=== PATIENT | female | born 1935 | race Caucasian/White ===

== ENCOUNTER 2016-10-26 00:18 | Inpatient (IN) | payer MEDICARE, OTHER ==
[~2016-10-26] VITALS: Ht 152.4 cm; Wt 90.3 kg
[~2016-10-26 00:18] MED LIST: ACHD5005 PO; ARICEPT; ASP325TEC PO; ASP81CT; ASP81CT PO; ASP81TEC PO; BACL10TA PO; BACLOFEN; BUPR150T PO; BUPR150T6; CA C1TAB26 PO; CELEBREX; CEREFOLIN; CHOL10002; CLCX100C PO; CLCX200C; CLCX200C PO; COLACE; DCS100C PO; DIOVAN; DNPZ10T; DOCU-165 PO; ECASA; GABAPENTIN; GBPN300C PO; HYDROCODONE 5/325; IBUP-15 PO; IRBE1TAB15 PO; LD5PT TOP; MEMA10TA; MEMA10TA PO; MIRALAX; MULT1CAP27 PO; MULT1TAB63; MULTIVITAMIN; NAMENDA; OXYC10TA63 PO; OXYCODONE PO; PAXIL; POLY17PO23 PO; POT; POTA99TA4 PO; PRX20T; PRX20T PO; VALS320T8 PO; VIT1TABL5 PO; VLS80C
[2016-10-26] MEDS ORDERED: NS IV 500 ML 500 ML IV ONE (00:23)
[2016-10-26 00:31] LABS: BILIRUBIN,URINE NEGATIVE (NEGATIVE); KETONES,URINE 1+ (NEGATIVE); LEUKOCYTE ESTERASE ,URINE 1+ (NEGATIVE); NITRITE,URINE NEGATIVE (NEGATIVE); PH,URINE 5 (5-9); PROTEIN,URINE 2+ (NEGATIVE); UROBILINOGEN,URINE 4 MG/DL (NORMAL)
[2016-10-26 00:33] LABS: BASOPHILS % (AUTO) 0 % (0-10); EOSINOPHILS # (AUTO) 0.2 10^3/uL (0.0-0.3); EOSINOPHILS % (AUTO) 3 % (0-10); LYMPHOCYTES # (AUTO) 2.3 X 10^3 (1.0-4.0); LYMPHOCYTES % (AUTO) 33 % (12-44); MEAN CORPUSCULAR HEMOGLOBIN 33 PG (25-34); MEAN CORPUSCULAR HGB CONC 33 G/DL (32-36); MEAN CORPUSCULAR VOLUME 101 FL (80-99); MEAN PLATELET VOLUME 9.3 FL (7.4-10.4); MONOCYTES # (AUTO) 0.7 X 10^3 (0.0-1.0); MONOCYTES % (AUTO) 10 % (0-12); NEUTROPHILS # (AUTO) 3.8 X 10^3 (1.8-7.8); NEUTROPHILS % (AUTO) 55 % (42-75); PLATELET COUNT 279 10^3/uL (130-400); RED BLOOD COUNT 4.01 10^6/uL (4.35-5.85); RED CELL DISTRIBUTION WIDTH 13.4 % (10.0-14.5)
[2016-10-26 00:39] LABS: HYALINE CASTS, URINE 25-50 /LPF; SQUAMOUS EPITHELIAL CELL,UR RARE /HPF; WBC,URINE 0-2 /HPF
--- NOTE | 2016-10-26 00:48 | ED Fall/Injury ---
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 found her laying on the ground next to her bed complaining of left knee pain. Patient does not remember fall and is not sure if she hit her head. She states her left knee and hip hurt. reports that she's had bilateral knee replacements and believes that she's had a left hip replacement. She does smell strong urine odor. Patient's reports that she is historically incontinent. Location Injury Occurred: HOME Occurred: just prior to arrival (30 minutes ago) Severity: moderate Injuries/Pain Location: lower extremity Context: slipped Loss of Consciousness: unsure Associated Symptoms (Fall): No Abdominal Pain, No Chest Pain, Confusion, No Headache, Muscle Spasms, No Nausea/Vomiting, No Shortness of Air Allergies and Home Medications Allergies Coded Allergies: No Known Drug Allergies (Verified , 06/17/08) Home Medications Aspirin 81 Mg Tabec, 81 MG PO DAILY, (Reported) Bupropion Hcl 150 Mg Tab.sr.24h, 150 MG PO DAILY, (Reported) Ca Cmb No.1/Vit D3/B-6/Fa/B12 1 Each Tablet, 1 EACH PO DAILY, (Reported) Celecoxib 200 Mg Capsule, 1 EACH PO DAILY, (Reported) Docusate Sodium 100 Mg Capsule, 100 MG PO DAILY, (Reported) Irbesartan/Hydrochlorothiazide 1 Tab Tablet, 2 TAB PO DAILY, (Reported) Memantine Hcl 10 Mg Tablet, 1 EACH PO BID, (Reported) Multivitamins 1 Each Capsule, 1 EACH PO DAILY, (Reported) Oxycodone Hcl 10 Mg Tab.sr.12h, 10 MG PO Q12H, (Reported) Paroxetine Hcl 20 Mg Tablet, 2 TAB PO HS, (Reported) Potassium Gluconate 99 Mg Tablet, 99 MG PO DAILY, (Reported) Vit B12/Lm-Folate Ca/Vit B6/B2 1 Tab Tablet, 1 TAB PO DAILY, (Reported) [oxycodone 7.5/325mg] , 1-2 TAB PO Q4H PRN, (Reported) as needed for pain Constitutional: see HPI, No chills, No fever Eyes: No Symptoms Reported Ears, Nose, Mouth, Throat: no symptoms reported Respiratory: no symptoms reported, No short of breath, No wheezing Cardiovascular: No chest pain, No edema Gastrointestinal: no symptoms reported, No nausea, No vomiting Genitourinary: no symptoms reported Musculoskeletal: see HPI, muscle pain, muscle cramps, muscle twitching Skin: no symptoms reported All Other Systems Reviewed Negative Unless Noted: Yes Past Prvsvgn-Pqexug-Jnrwin Hx Patient Social History Alcohol Use: Denies Use Recreational Drug Use: No Smoking Status: Never a Smoker Recent Foreign Travel: No Contact w/Someone Who Travel: No Recent Infectious Disease Expo: No Recent Hopitalizations: Yes Surgeries HX Surgeries: Yes (R ROTATOR CUFF, KNEES,ANKLES) Surgeries: Appendectomy, Eye Surgery, Orthopedic, Tonsillectomy Respiratory Hx Respiratory Disorders: No Cardiovascular Hx Cardiac Disorders: Yes Cardiac Disorders: Hypertension Neurological Hx Neurological Disorders: Yes Neurological Disorders: TIA Reproductive System Hx Reproductive Disorders: No Genitourinary Hx Genitourinary Disorders: Yes Gastrointestinal Hx Gastrointestinal Disorders: Yes Musculoskeletal Hx Musculoskeletal Disorders: Yes Musculoskeletal Disorders: Arthritis Endocrine Hx Endocrine Disorders: No HEENT HX ENT Disorders: Yes HEENT Disorders: Cataract Psychosocial Hx Psychiatric Problems: Yes Blood Transfusions Hx Blood Disorders: No Reviewed Nursing Assessment Reviewed/Agree w Nursing PMH: Yes Family Medical History Significant Family History: No Pertinent Family Hx Physical Exam Vital Signs Vital Sign - Last 12Hours 10/26/16 00:20 Temp 98.1 Pulse 78 Resp 16 B/P (MAP) 133/91 Pulse Ox 94 O2 Delivery Room Air Capillary Refill : Less Than 3 Seconds General Appearance: WD/WN, moderate distress (left leg pain) HEENT: PERRL/EOMI, pharynx normal Neck: full range of motion, supple Cardiovascular: regular rate, rhythm, no murmur Respiratory: lungs clear, normal breath sounds Gastrointestinal: non tender, soft Back: normal inspection, no CVA tenderness, no vertebral tenderness Extremities: non-tender, normal inspection Neurologic/Psychiatric: alert, oriented x 3 Skin: normal color, warm/dry Sunni Coma Score Best Eye Response: (4) Open Spontaneously Best Verbal Response: (5) Oriented Best Motor Response: (6) Obeys Commands Progress/Results/Core Measures Results/Orders Lab Results Laboratory Tests Test 10/26/16 00:10/26/16 00:27 Range/Units Urine Color YELLOW Urine Clarity CLEAR Urine pH 5 5-9 Urine Specific [place] 1.020 1.016-1.022 Urine Protein 2+ H NEGATIVE Urine Glucose (UA) NEGATIVE NEGATIVE Urine Ketones 1+ H NEGATIVE Urine Nitrite NEGATIVE NEGATIVE Urine Bilirubin NEGATIVE NEGATIVE Urine Urobilinogen 4 H NORMAL MG/DL Urine Leukocyte Esterase 1+ H NEGATIVE Urine RBC (Auto) NEGATIVE NEGATIVE Urine RBC NONE /HPF Urine WBC 0-2 /HPF Urine Squamous Epithelial Cells RARE /HPF Urine Crystals NONE /LPF Urine Bacteria TRACE /HPF Urine Casts PRESENT /LPF Urine Hyaline Casts 25-50 H /LPF Urine Mucus MODERATE H /LPF Urine Culture Indicated NO White Blood Count 7.0 4.3-11.0 10^3/uL Red Blood Count 4.01 L 4.35-5.85 10^6/uL Hemoglobin 13.2 11.5-16.0 G/DL Hematocrit 40 35-52 % Mean Corpuscular Volume 101 H 80-99 FL Mean Corpuscular Hemoglobin 33 25-34 PG Mean Corpuscular Hemoglobin Concent 33 32-36 G/DL Red Cell Distribution Width 13.4 10.0-14.5 % Platelet Count 279 130-400 10^3/uL Mean Platelet Volume 9.3 7.4-10.4 FL Neutrophils (%) (Auto) 55 42-75 % Lymphocytes (%) (Auto) 33 12-44 % Monocytes (%) (Auto) 10 0-12 % Eosinophils (%) (Auto) 3 0-10 % Basophils (%) (Auto) 0 0-10 % Neutrophils # (Auto) 3.8 1.8-7.8 X 10^3 Lymphocytes # (Auto) 2.3 1.0-4.0 X 10^3 Monocytes # (Auto) 0.7 0.0-1.0 X 10^3 Eosinophils # (Auto) 0.2 0.0-0.3 10^3/uL Basophils # (Auto) 0.0 0.0-0.1 10^3/uL Sodium Level 140 135-145 MMOL/L Potassium Level 4.4 3.6-5.0 MMOL/L Chloride Level 104 98-107 MMOL/L Carbon Dioxide Level 25 21-32 MMOL/L Anion Gap 11 5-14 MMOL/L Blood Urea Nitrogen 26 H 7-18 MG/DL Creatinine 1.07 0.60-1.30 MG/DL Estimat Glomerular Filtration Rate 49 BUN/Creatinine Ratio 24 Glucose Level 128 H 70-105 MG/DL Calcium Level 9.3 8.5-10.1 MG/DL Total Bilirubin 0.3 0.1-1.0 MG/DL Aspartate Amino Transf (AST/SGOT) 12 5-34 U/L Alanine Aminotransferase (ALT/SGPT) 11 0-55 U/L Alkaline Phosphatase 68 40-136 U/L Total Protein 6.3 L 6.4-8.2 GM/DL Albumin 3.7 3.2-4.5 GM/DL My Orders Orders - JAEL ANDERSON MD Cbc With Automated Diff (10/26/16 00:23) Comprehensive Metabolic Panel (10/26/16:23) Ua Culture If Indicated (10/26/16:23) Knee, Left, 3 Views (10/26/16 00:23) Pelvis (10/26/16:23) Ct Head Wo (10/26/16:23) Ns Iv 500 Ml (Sodium Chloride 0.9%) (10/26/16 00:23) Chest 1 View, Ap/Pa Only (10/26/16 01:10) Femur, Left, 2 Views (10/26/16 01:10) Hydromorphone Injection (Dilaudid Inject (10/26/16 01:13) Hydromorphone Injection (Dilaudid Inject (10/26/16 01:08) Medications Given in ED Current Medications Medications Dose Ordered Sig/Cristal Route Start Time Stop Time Status Last Admin Dose Admin Sodium Chloride 500 ml @ 0 mls/hr Q0M ONCE IV 10/26/16 00:23 10/26/16 00:25 DC 10/26/16 00:33 500 MLS/HR Vital Signs/I&O Vital Sign - Last 12Hours 10/26/16 00:20 Temp 98.1 Pulse 78 Resp 16 B/P (MAP) 133/91 Pulse Ox 94 O2 Delivery Room Air Blood Pressure Mean: 105 Progress Note : Progress Note Seen and evaluated on arrival by EMS. IV established by EMS. CT head, x-ray left knee and femur as well as pelvis ordered. Labs and UA ordered. Monitor patient. Monitor significant pain reported. X-ray of the femur shows distal left femur fracture just above knee hardware with displacement anterior and medial. Case discussed with Dr. Drummond at 0114. He accepts patient for admission. Case discussed with Dr. Toribio, on-call for Dr. Henson at 0126. She accepts patient in consult. Patient did receive Dilaudid 0.5 mg IV and was placed in a knee immobilizer per Dr. Drummond recommendation. This did improve her pain. Admit, inpatient status. Family agrees with plan. Diagnostic Imaging Diagonstic Imaging: CT Plain Films/CT/US/NM/MRI: head Comments No acute intracranial process. Diagonstic Imaging: Xray Plain Films/CT/US/NM/MRI: knee Comments Distal femur fracture with femur displaced medial and anterior. Reviewed: Reviewed by Me Diagonstic Imaging: Xray Plain Films/CT/US/NM/MRI: femur (left femur) Comments Distal femur fracture with femur displaced medial and anterior. Reviewed: Reviewed by Me Diagonstic Imaging: Xray Plain Films/CT/US/NM/MRI: pelvis Comments No acute findings. Reviewed: Reviewed by Me Departure Communication Time/Spoke to Admitting Phy: 01:14 Time/Spoke to Consulting Physi: 01:26 Impression Impression: Primary Impression: Femur fracture, left Qualified Codes: S72.452A - Displaced supracondylar fracture without intracondylar extension of lower end of left femur, initial encounter for closed fracture Disposition: ADMITTED INPATIENT Condition: Stable Decision to Admit Reason: Admit from ER (General) Decision to Admit/Date: Oct 26, 2016 Time/Decision to Admit Time: 01:14 Departure-Patient Inst. Referrals: SANDRO HENSON DO (PCP/Family) Primary Care Physician JAEL ANDERSON MD Oct 26, 2016 00:48
[2016-10-26 00:56] LABS: ALBUMIN 3.7 GM/DL (3.2-4.5); BILIRUBIN,TOTAL 0.3 MG/DL (0.1-1.0); CALCIUM 9.3 MG/DL (8.5-10.1); CREATININE SERUM 1.07 MG/DL (0.60-1.30); POTASSIUM 4.4 MMOL/L (3.6-5.0); TOTAL PROTEIN 6.3 GM/DL (6.4-8.2)
[2016-10-26] MEDS ORDERED: HYDROmorphone (DILAUDID) 2 MG/ML VIAL ONE (01:08)
[2016-10-26] MEDS ORDERED: HYDROmorphone (DILAUDID) 2 MG/ML VIAL IVP STA (01:13)
[2016-10-26 02:20] VITALS: BP 115/57
[2016-10-26] MEDS ORDERED: NS IV 1000 ML 1,000 ML ONE (02:42)
[2016-10-26 04:00] VITALS: BP 125/74
[2016-10-26] MEDS: HALOPERIDOL 5 MG/ML (HALDOL) AMP IV PRN (04:19)
[2016-10-26] MEDS ORDERED: LORazepam INJ 2 MG/ML (ATIVAN) VIAL ONE (04:44)
[2016-10-26] MEDS ORDERED: ONDANSETRON 4 MG/2 ML (SDV) Z0FRAN IV PRN ×2 (05:00→13:15)
[2016-10-26] MEDS ORDERED: CATHETER FLUSH 10 ML SYR IV PRN (05:00)
[2016-10-26] MEDS ORDERED: LORazepam INJ 2 MG/ML (ATIVAN) VIAL IVP ONE (05:00)
[2016-10-26] MEDS: NS IV 1000 ML 1,000 ML IV SCH ×2 (05:12→15:12)
[2016-10-26] MEDS: HYDROmorphone (DILAUDID) 2 MG/ML VIAL IV PRN ×4 (05:13→15:43)
--- NOTE | 2016-10-26 06:54 | Diagnostic Imaging Report ---
CHEST 1 VIEW, AP/PA ONLY Indication: Fall. Trauma. Comparison: None available. Findings: No focal airspace disease in the visualized lungs. Please note that the posterior lower lobes are poorly evaluated by portable radiography. No pleural effusion or pneumothorax. Normal cardiomediastinal silhouette. Severe osteoarthritis of both glenohumeral joints. Impression: No acute cardiopulmonary process by portable radiography. Dictated by: Dictated on workstation # [id number]
--- NOTE | 2016-10-26 06:54 | Diagnostic Imaging Report ---
INDICATION: Patient fell at home injuring left leg. AP and lateral views of the left femur show postop changes from left hip and left knee arthroplasty. There are old healed fractures of the left superior and inferior ischiopubic rami and the greater trochanter on the left. No acute abnormality seen in the hip. There are postop changes from arthroplasty of the knee. There is a transcondylar fracture of the distal femur just above the prosthesis. The fracture is comminuted with the distal component displaced laterally and posteriorly. IMPRESSION: Comminuted displaced fracture of the distal left femur just above the femoral component of the prosthesis. Dictated by: Dictated on workstation # [id number]
--- NOTE | 2016-10-26 06:55 | Diagnostic Imaging Report ---
INDICATION: Pain after fall. COMPARISON: Left hip radiographs of 10/03/2008. FINDINGS: Osteoporosis limits evaluation for nondisplaced fractures in the pelvis. Allowing for this, there are old healed fractures of the left superior and inferior pubic rami. Left total hip arthroplasty without acute periprosthetic fracture on single frontal view. No discrete fracture of the proximal right femur. No diastasis of the symphysis pubis or SI joints. No discrete sacral ala fracture, though evaluation is limited. IMPRESSION: Allowing for limitation of osteopenia and overlying bowel gas, no discrete acute fracture. Dictated by: Dictated on workstation # [id number]
--- NOTE | 2016-10-26 06:56 | Diagnostic Imaging Report ---
INDICATION: Left knee injury 3 views of the left knee show postop changes from joint arthroplasty. There is a comminuted fracture of the distal femur just above the femoral component of the prosthesis. The distal aspect of the femur is displaced posteriorly and laterally. There may also be a non-displaced transverse fracture of the inferior aspect of the patella. IMPRESSION: Displaced/comminuted fracture distal femur just above the prosthesis. Questionable patellar fracture. Dictated by: Dictated on workstation # [id number]
--- NOTE | 2016-10-26 06:58 | Diagnostic Imaging Report ---
PROCEDURE: CT head without contrast. TECHNIQUE: Multiple contiguous axial images were obtained through the brain without the use of intravenous contrast. INDICATION: Head injury from a fall The ventricles are normal in size, shape and position. There are no masses or hemorrhages. There are no extra-axial fluid collections. There is generalized atrophy. There is decreased density in the periventricular white matter. 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 There are no acute intracranial abnormalities seen. I agree with preliminary interpretation. Dictated by: Dictated on workstation # [id number]
[2016-10-26] MEDS: CATHETER FLUSH 10 ML SYR IV SCH ×3 (07:43→21:04)
[2016-10-26 08:15] VITALS: BP 107/61
[2016-10-26] MEDS ORDERED: morphine INJ 10 MG/ML 1ML (SYR OR VIAL) ONE (10:18)
[2016-10-26] MEDS ORDERED: MEPERIDINE (DEMEROL) INJ 50 MG/ML ONE (10:19)
--- NOTE | 2016-10-26 10:38 | Consultation ---
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 SHE PRESENTED TO THE EMERGENCY DEPARTMENT AFTER FALLING AT HOME. THE FALL WAS NOT WITNESSED BY HER SPOUSE. SHE HAD GOTTEN OUT OF BED, FELL AND FELT IMMEDIATE PAIN IN HER LEFT KNEE. HER BROUGHT HER OUT TO THE EMERGENCY DEPARTMENT FOR FURTHER EVALUATION. SHE WAS FOUND TO HAVE A COMMINUTED DISPLACED FRACTURE OF THE DISTAL LEFT FEMUR IMMEDIATELY ABOVE THE FEMORAL COMPONENT OF HER LEFT KNEE REPLACEMENT HARDWARE. Allergies and Home Medications Allergies Coded Allergies: No Known Drug Allergies (Verified , 06/17/08) Home Medications Aspirin 81 Mg Tabec, 81 MG PO DAILY, (Reported) Bupropion Hcl 150 Mg Tab.sr.24h, 150 MG PO DAILY, (Reported) Ca Cmb No.1/Vit D3/B-6/Fa/B12 1 Each Tablet, 1 EACH PO DAILY, (Reported) Celecoxib 200 Mg Capsule, 1 EACH PO DAILY, (Reported) Docusate Sodium 100 Mg Capsule, 100 MG PO DAILY, (Reported) Irbesartan/Hydrochlorothiazide 1 Tab Tablet, 2 TAB PO DAILY, (Reported) Memantine Hcl 10 Mg Tablet, 1 EACH PO BID, (Reported) Multivitamins 1 Each Capsule, 1 EACH PO DAILY, (Reported) Oxycodone Hcl 10 Mg Tab.sr.12h, 10 MG PO Q12H, (Reported) Paroxetine Hcl 20 Mg Tablet, 2 TAB PO HS, (Reported) Potassium Gluconate 99 Mg Tablet, 99 MG PO DAILY, (Reported) Vit B12/Lm-Folate Ca/Vit B6/B2 1 Tab Tablet, 1 TAB PO DAILY, (Reported) [oxycodone 7.5/325mg] , 1-2 TAB PO Q4H PRN, (Reported) as needed for pain Past Zhgysbz-Qbbrei-Jgeroe Hx Patient Social History Alcohol Use: Denies Use Recreational Drug Use: No Smoking Status: Never a Smoker 2nd Hand Smoke Exposure: No Recent Foreign Travel: No Contact w/Someone Who Travel: No Recent Infectious Disease Expo: No Recent Hopitalizations: Yes Physical Abuse Screen: No Sexual Abuse: No Seasonal Allergies Seasonal Allergies: No Surgeries HX Surgeries: Yes (R ROTATOR CUFF, KNEES,ANKLES) Surgeries: Appendectomy, Eye Surgery, Orthopedic (LEFT KNEE REPLACEMENT), Tonsillectomy Respiratory Hx Respiratory Disorders: No Cardiovascular Hx Cardiac Disorders: Yes Cardiac Disorders: Hypertension Neurological Hx Neurological Disorders: Yes Neurological Disorders: TIA Reproductive System : No Hx Reproductive Disorders: No Sexually Transmitted Disease: No HIV/AIDS: No Female Reproductive Disorders: Denies Genitourinary Hx Genitourinary Disorders: Yes Gastrointestinal Hx Gastrointestinal Disorders: Yes Musculoskeletal Hx Musculoskeletal Disorders: Yes Musculoskeletal Disorders: Arthritis Endocrine Hx Endocrine Disorders: No HEENT HX ENT Disorders: Yes HEENT Disorders: Cataract Loss of Vision: Denies Hearing Impairment: Denies Psychosocial Hx Psychiatric Problems: Yes Blood Transfusions Hx Blood Disorders: No Reviewed Nursing Assessment Reviewed/Agree w Nursing PMH: Yes Family Medical History Significant Family History: Heart Disease Review of Systems-General Constitutional: No chills, No fever, malaise, weakness EENTM: No hoarseness, No mouth swelling, No throat swelling Respiratory: No cough, No dyspnea on exertion, No short of breath Cardiovascular: No chest pain, No palpitations Gastrointestinal: No abdominal pain, No nausea, No vomiting Genitourinary: no symptoms reported : No Musculoskeletal: joint pain (LEFT KNEE), muscle weakness Skin: No lesions, No rash Psychiatric/Neurological: Denies Anxiety, Denies Depressed, Headache, Other ( DEMENTIA) All Other Systems Reviewed Negative Unless Noted: Yes Physical Exam-General Problems Physical Exam Vital Signs Vital Sign - Last 12Hours 10/26/16 00:20 Temp 98.1 Pulse 78 Resp 16 B/P (MAP) 133/91 Pulse Ox 94 O2 Delivery Room Air Capillary Refill : Less Than 3 SecondsLess Than 3 Seconds General Appearance: WD/WN, mild distress (DUE TO PAIN) Eyes: Bilateral Eye Normal Inspection Neck: non-tender, supple, normal inspection Respiratory: chest non-tender, lungs clear, normal breath sounds, no respiratory distress, no accessory muscle use Cardiovascular: regular rate, rhythm, systolic murmur Gastrointestinal: normal bowel sounds, non tender, soft, no organomegaly, no pulsatile mass Rectal: deferred Extremities: swelling (LEFT LEFT AT KNEE/MID THIGH - SURGICAL DRESSING IN PLACE ) 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 CHRONIC INCONTINENCE - SUPPORTIVE CARE - URINALYSIS NEGATIVE FOR INFECTION HX OF STROKE - WILL CONTINUE WITH ASPIRIN THERAPY. HYPERTENSION - RESTART IRBESARTAN (IF NOT AVAILABLE, WILL HAVE SPOUSE BRING FROM HOME OR SUBSTITUTE HOSPITAL FORMULARY MEDICATION) DEMENTIA - RESTART NAMENDA CHRONIC PAIN SYNDROME - ON OXYCODONE AT HOME, DUE TO NEW ACUTE PAIN - WILL USE IV PAIN MEDICATION FOR CONTROL OF HER CURRENT PAIN, RESTART HOME MEDICATION TOMORROW OR FRIDAY. DEPRESSION - RESTART HOME MEDICATIONS. OSTEOARTHRITIS - ON CELEBREX - IF NOT AVAILABLE IN HOSPITAL, WILL HAVE HER SPOUSE BRING HOME MEDICATION. Clinical Quality Measures DVT/VTE Risk/Contraindication: Risk Factor Score Per Nursin RFS Level Per Nursing on Admit: 4+=Very High MAYITO LLAMAS MD Oct 26, 2016 10:38
[2016-10-26] MEDS ORDERED: proPOfol 200 MG/20 ML (DIPRIVAN) VIAL IV ONE (10:55)
[2016-10-26] MEDS ORDERED: fentaNYL INJECTION 100 MCG/2 ML AMP ONE ×2 (10:55→12:39)
--- NOTE | 2016-10-26 11:36 | History & Physicial ---
History of Present Illness History of Present Illness Reason for visit/HPI Chief complaint: Left thigh pain This 81 year old female fell at home and fractured the left femur just above a knee prosthesis. She had a right TKA at least 15 years ago. She has poor balance and falls all the time. She has a rolling walker but does not always think she needs it. She denies any LOC or any other injury. Date of Admission Oct 26, 2016 at 01:30 Date Seen by Provider: Oct 26, 2016 Time Seen by Provider: 11:28 I consulted on this patient on 10/26/16 11:28 Attending Physician Virginia Drummond MD Admitting Physician Suzy Henson DO Consult Allergies and Home Medications Allergies Coded Allergies: No Known Drug Allergies (Verified , 06/17/08) Home Medications Aspirin 81 Mg Tabec, 81 MG PO DAILY, (Reported) Bupropion Hcl 150 Mg Tab.sr.24h, 150 MG PO DAILY, (Reported) Ca Cmb No.1/Vit D3/B-6/Fa/B12 1 Each Tablet, 1 EACH PO DAILY, (Reported) Celecoxib 200 Mg Capsule, 1 EACH PO DAILY, (Reported) Docusate Sodium 100 Mg Capsule, 100 MG PO DAILY, (Reported) Irbesartan/Hydrochlorothiazide 1 Tab Tablet, 2 TAB PO DAILY, (Reported) Memantine Hcl 10 Mg Tablet, 1 EACH PO BID, (Reported) Multivitamins 1 Each Capsule, 1 EACH PO DAILY, (Reported) Oxycodone Hcl 10 Mg Tab.sr.12h, 10 MG PO Q12H, (Reported) Paroxetine Hcl 20 Mg Tablet, 2 TAB PO HS, (Reported) Potassium Gluconate 99 Mg Tablet, 99 MG PO DAILY, (Reported) Vit B12/Lm-Folate Ca/Vit B6/B2 1 Tab Tablet, 1 TAB PO DAILY, (Reported) [oxycodone 7.5/325mg] , 1-2 TAB PO Q4H PRN, (Reported) as needed for pain Past Ydjqmtx-Muccoe-Fdhfef Hx Patient Social History Marrital Status: Employed/Student: retired Alcohol Use: Denies Use Recreational Drug Use: No Smoking Status: Never a Smoker 2nd Hand Smoke Exposure: No Physical Abuse Screen: No Sexual Abuse: No Recent Foreign Travel: No Contact w/other who traveled: No Recent Hopitalizations: Yes Recent Infectious Disease Expo: No Seasonal Allergies Seasonal Allergies: No Surgeries HX Surgeries: Yes (R ROTATOR CUFF, KNEES,ANKLES) Surgeries: Appendectomy, Eye Surgery, Orthopedic (LEFT KNEE REPLACEMENT), Tonsillectomy Respiratory Hx Respiratory Disorders: No Cardiovascular Hx Cardiovascular Disorders: Yes Cardiac Disorders: Hypertension Neurological Hx Neurological Disorders: Yes Neurological Disorders: TIA Reproductive System : No Hx Reproductive Disorders: No Sexually Transmitted Disease: No HIV/AIDS: No Female Reproductive Disorders: Denies Genitourinary Hx Genitourinary Disorders: Yes Gastrointestinal Hx Gastrointestinal Disorders: Yes Musculoskeletal Hx Musculoskeletal Disorders: Yes Musculoskeletal Disorders: Arthritis Endocrine Hx Endocrine Disorders: No HEENT HX ENT Disorders: Yes HEENT Disorders: Cataract Loss of Vision: Denies Hearing Impairment: Denies Psychosocial Hx Psychiatric Problems: Yes Blood Transfusions Hx Blood Disorders: No Reviewed Nursing Assessment Reviewed/Agree w Nursing PMH: Yes Family Medical History Significant Family History: Heart Disease Constitutional: no symptoms reported EENTM: no symptoms reported Respiratory: no symptoms reported Cardiovascular: no symptoms reported Gastrointestinal: no symptoms reported Genitourinary: no symptoms reported : No Musculoskeletal: other (See HPI) Psychiatric/Neurological: No Symptoms Reported, Weakness, Other (Chronic falls and balance issues) Physical Exam Vital Signs Vital Sign - Last 12Hours 10/26/16 00:20 Temp 98.1 Pulse 78 Resp 16 B/P (MAP) 133/91 Pulse Ox 94 O2 Delivery Room Air Capillary Refill : Less Than 3 SecondsLess Than 3 Seconds General Appearance: No Apparent Distress, Obese HEENT: PERRL/EOMI Neck: Full Range of Motion Respiratory: Chest Non Tender Cardiovascular: Regular Rate, Rhythm Gastrointestinal: Normal Bowel Sounds Extremity: Normal Capillary Refill, No Calf Tenderness, No Pedal Edema, Pelvis Stable, Other (Left knee swollen and tender. No bruising. Well healed incision. ) Neurologic/Psychiatric: No Motor/Sensory Deficits, Depressed Affect Skin: Normal Color, Warm/Dry Assessment/Plan Assessment and Plan Left supracondylar periprosthetic femoral fracture-- will go to the operating room for ORIF of the femur. I discussed rehab and [facility] with her and they are agreeable to that. I am sure she will need it with her balance issues and falls she has had prior to the fracture. Problems: Admission Diagnosis Left supracondylar femur fracture Left total knee replacement Clinical Quality Measures DVT/VTE Risk/Contraindication: Risk Factor Score Per Nursin RFS Level Per Nursing on Admit: 4+=Very High VIRGINIA DRUMMOND MD Oct 26, 2016 11:36
[2016-10-26] MEDS: LACTATED RINGERS 1,000 ML IV PRN ×2 (11:41→12:45)
[2016-10-26 11:52] LABS: PROTHROMBIN TIME PATIENT 12.4 SEC (12.2-14.7)
[2016-10-26] MEDS ORDERED: ceFAZolin 1,000 MG (ANCEF) VIAL ONE (11:59)
[2016-10-26] MEDS ORDERED: LACTATED RINGERS 2,000 ML IV ONE (12:52)
[2016-10-26] MEDS ORDERED: SEVOFLURANE (ULTANE) 15 ML INHAL SOLN ONE (12:52)
[2016-10-26] MEDS ORDERED: ONDANSETRON 4 MG/2 ML (SDV) Z0FRAN ONE (12:52)
[2016-10-26] MEDS ORDERED: ROPIVACAINE 5MG/ML 30ML VIAL ONE (12:52)
--- NOTE | 2016-10-26 13:10 | Progress Note-Post Operative ---
Post-Operative Progess Note Surgeon (s)/Data Operations Leader (s) Surgeon VIRGINIA AVINA MD Data Operations Leader: LATOYA OLMEDO PA-C Pre-Operative Diagnosis LEFT COMMINUTED SUPRACONDYLAR FEMORAL FRACTURE Post-Operative Diagnosis SAME Procedure & Operative Findings Date of Procedure 10/26/16 Procedure Performed/Findings OPEN REDUCTION INTERNAL FIXATION OF LEFT SUPRACONDYLAR FEMUR FRACTURE Anesthesia Type GENERAL WITH ULTRASOUND GUIDED FEMORAL NERVE BLOCK PLACED FOR POSTOPERATIVE PAIN CONTROL Estimated Blood Loss Estimated blood loss (mL): 200 ML Specimens/Packing Specimens Removed NONE Packing: NONE VIRGINIA AVINA MD Oct 26, 2016 13:10
[2016-10-26] MEDS ORDERED: APAP 300 MG/CODEINE 30 MG (TYLENOL #3) TAB PO PRN (13:15)
[2016-10-26] MEDS ORDERED: HYDROcodone/APAP 10 MG/325 MG (LORTAB) TAB PO PRN (13:15)
[2016-10-26] MEDS ORDERED: ACETAMINOPHEN 325 MG TABLET/CAPLET (TYLENOL) PO PRN (13:15)
--- NOTE | 2016-10-26 13:39 | Diagnostic Imaging Report ---
INDICATION: Knee pain. Intraoperative fluoroscopy. COMPARISON: Knee radiographs of earlier same day. FINDINGS AND IMPRESSION: Multiple fluoroscopic images were obtained during ORIF of comminuted distal femoral fracture. These demonstrate placement of plate and screw fixation of comminuted distal femoral metadiaphyseal fracture. A total of 75 seconds or fluoroscopy was utilized for this procedure performed by Dr. Drummond. Please see operative report for complete details. Dictated by: Dictated on workstation # [id number]
--- NOTE | 2016-10-26 13:43 | Anesthesia-Peripheral Nerve Bl ---
Procedure Start/Stop Time Date of Procedure: Oct 26, 2016 Start Time: 13:15 Stop Time: 13:25 Peripheral Nerve Block Peripheral Nerve Blockade Risk/Benefits/Alternatives discussed, including IV injection leading to complications or seizures, nerve irritation or damage, pneumothorax, total spinal anesthesia, injection, and/or bleeding. Approach: LT FNB Side Confirmed: LEFT Indication: Req Pain Mgmt by Surgeon Specifically requested for management of pain by: Patient Condition Vital Signs Vital Signs Date Time Temp Pulse Resp B/P (MAP) Pulse Ox O2 Delivery O2 Flow Rate FiO2 10/26/16 10:56 Nasal Cannula 2.00 10/26/16 08:15 96.6 87 16 107/61 92 Patient Condition: General PNB performed under: General Anesthesia Procedure Prepartation: Chlorhexidine Position: Supine [place]: Short-bevel Needle (s) Size: 22g 2" Technique: Ultrasound Injectate: ropivacaine Concentration %: 0.5 Volume (ml): 30 Epinephrine used: No Narrative Injection was made incrementally with constant monitoring. Blood Aspirated: No Pain on injection noted: No Normal Resistance on injection: Yes Events Patient Conditon Post Peripheral Nerve Block Post Peripheral Nerve Block Vital Signs: Blood Pressure: Systolic Diastolic Heart Rate Blood Pressure Systolic: 107 Blood Pressure Diastolic: 61 Pulse Rate (adult): 87 YAIMA HDEZ CRNA Oct 26, 2016 13:43
[2016-10-26] MEDS ORDERED: morphine INJ 10 MG/ML 1ML (SYR OR VIAL) IVP PRN (13:45)
[2016-10-26] MEDS ORDERED: ONDANSETRON 4 MG/2 ML (SDV) Z0FRAN IVP PRN (13:45)
[2016-10-26 14:45] VITALS: BP 109/73
[2016-10-26] MEDS: morphine INJ 4 MG/ML 1 ML (VIAL/SYRINGE) IVP PRN ×2 (15:07→19:55)
[2016-10-26 16:48] VITALS: BP 108/73
[2016-10-26 19:27] VITALS: BP 120/76
[2016-10-26] MEDS: DOCUSATE SODIUM 100 MG (COLACE) CAP PO SCH (19:55)
[2016-10-26] MEDS: oxyCODONE/APAP 5/325MG (PERCOCET 5) TABLET PO PRN (23:37)
[2016-10-27] VITALS: BP 104/64
[2016-10-27] MEDS ORDERED: FUROSEMIDE 40 MG/4 ML INJ (LASIX) IVP ONE ×2 (00:15→06:45)
[2016-10-27] MEDS ORDERED: ENOXAPARIN 40 MG/0.4 ML (LOVENOX) SYR SC SCH (01:15)
[2016-10-27] MEDS: NS IV 1000 ML 1,000 ML IV SCH ×3 (01:32→21:04)
[2016-10-27] MEDS: CATHETER FLUSH 10 ML SYR IV SCH ×3 (03:48→21:09)
[2016-10-27 04:00] VITALS: BP 114/53
[2016-10-27] MEDS: oxyCODONE/APAP 5/325MG (PERCOCET 5) TABLET PO PRN ×2 (06:20→14:24)
[2016-10-27] MEDS ORDERED: FUROSEMIDE 40 MG/4 ML INJ (LASIX) ONE (06:31)
[2016-10-27 07:40] LABS: CREATININE SERUM 1.93 MG/DL (0.60-1.30)
--- NOTE | 2016-10-27 08:30 | Physical Therapy Evaluation ---
PT Evaluation-General Medical Diagnosis Admission Date Oct 26, 2016 at 01:30 Medical Diagnosis: left femur fx Onset Date: Oct 26, 2016 Therapy Diagnosis Therapy Diagnosis: impaired mobility, strength, endurance, balance Height/Weight Height (Feet): 5 Height (Inches): 0.00 Weight (Pounds): 199 Weight (Ounces): 0.6 Precautions Precautions/Isolations: Fall Prevention, Standard Precautions Weight Bear Status Weight Bearing Restriction: Touch Toe Bearing Location Restriction: L LE Referral Physician: Schuyler Drummond MD Reason for Referral: Evaluation/Treatment Medical History Pertinent Medical History: Arthritis, HTN Additional Medical History falls, TIA, cataracts, surg (right TKA, right rotator cuff, ankles, appendectomy , eye, tonsillectomy) Current History fell at home and fracture left femur Reviewed History: Yes Social History Home: Single Level Current Living Status: Spouse Entry Into Home: Stairs Without Railing PT Steps Into Home: 3 Prior/Core FIM Prior Level of Function Functional [place] Measure 0=Not Assessed/NA 4=Minimal Assistance 1=Total Assistance 5=Supervision or Setup 2=Maximal Assistance 6=Modified [place] 3=Moderate Assistance 7=Complete [place] Bed Mobility: 6 Transfers (B,C,W/C) (FIM): 6 Gait: 6 daughter states she was using a 4 wheeled walker PT Evaluation-Current Subjective Patient in bed pre tx, she is very confused and doesn't even understand the question when asked if she has any pain. Her daughter is there and she can answer questions. Pt/Family Goals none stated Objective Patient Orientation: Confused Attachments: Askew Catheter, IV ROM/Strength ROM Lower Extremities NT Strenght Lower Extremities NT Integumentary/Posture Bladder Incontinence: Askew Cath Neuromuscular (Tone, Coordination, Reflexes) WNL Sensory Vision: Functional Hearing: Functional Sensation Lower Extremities patient cannot follow sensation testing Transfers Functional [place] Measure 0=Not Assessed/NA 4=Minimal Assistance 1=Total Assistance 5=Supervision or Setup 2=Maximal Assistance 6=Modified [place] 3=Moderate Assistance 7=Complete [place] Transfers (B, C, W/C) (FIM): 1 Scootin Rollin Supine to/from Sit: 1 Sit to/from Stand: 1 bed t/f WC(FIM only if WC use): 1 Patient can sit on the edge of the bed with min assist but leans to the right side and backwards. Patient was transferred to a chair at bedside with pretty much dependent transfer. She is not complaint with her weight bearing status. Balance Sitting Static: Poor Sitting Dynamic: Poor Standing Static: Poor Standing Dynamic: Poor Assessment/Needs Patient is not compliant with her weight bearing status, I don't think she understands that she cannot bear weight through that leg at this time. 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 PT Group Home Goals Time Frame: Nov 03, 2016 Transfers (B,C,W/C) (FIM): 3 Gait (FIM): 1 Distance: 10' Gait Level of Assist: 3 Gait Assistive Device: FWW PT Plan Problem List Problem List: Activity Tolerance, Functional Strength, Safety, Balance, Gait, Transfer, Bed Mobility, ROM Treatment/Plan Treatment Plan: Continue Plan of Care Treatment Plan: Bed Mobility, Education, Functional Activity Minerva, Functional Strength, Gait, Safety, Therapeutic Exercise, Transfers Treatment Duration: Nov 03, 2016 Frequency: Twice Daily (once a day on the weekends) Estimated Hrs Per Day: .25 hour per day (15-30 min) Patient and/or Family Agrees t: Yes Safety Risks/Education Patient Education: Transfer Techniques, Correct Positioning, Safety Issues Teaching Recipient: Patient Teaching Methods: Demonstration, Discussion Response to Teaching: Reinforcement Needed Discharge Recommendations Plan Patient will perform bed mobility and transfer training, balance and endurance training, functional strengthening, stair training, gait training, and education , to improve functional mobility and independence at home. Therapy D/C Recommendations: Home w/ Family Support, Snf (TCU/NH) Time/GCodes Time In: 805 Time Out: 825 Total Billed Treatment Time: 20 Total Billed Treatment 1 visit ANABEL 20' SKYE GAYLE PT Oct 27, 2016 08:30
[2016-10-27] MEDS: DOCUSATE SODIUM 100 MG (COLACE) CAP PO SCH ×2 (08:44→21:04)
--- NOTE | 2016-10-27 08:44 | Progress Note (SOAP) ---
Subjective Date Seen by Provider: Oct 27, 2016 Time Seen by Provider: 08:39 Subjective/Events-last exam Postop day 1 ORIF left distal femur. Sitting up in chair. Pain controlled. Slightly confused but daughter is with her. She is alert but has to be re- oriented to place and situation Objective Exam Vital Signs Date Time Temp Pulse Resp B/P (MAP) Pulse Ox O2 Delivery O2 Flow Rate FiO2 10/27/16 04:00 96.7 91 20 114/53 93 Nasal Cannula 3.00 10/27/16 00:00 97.3 90 20 104/64 93 Nasal Cannula 3.00 10/26/16 21:00 Nasal Cannula 3.00 10/26/16 19:27 96.3 83 18 120/76 96 Nasal Cannula 3.00 10/26/16 16:48 96.1 89 18 108/73 96 Nasal Cannula 3.00 10/26/16 14:45 96.8 75 18 109/73 94 Nasal Cannula 3.00 10/26/16 10:56 Nasal Cannula 2.00 10/26/16 09:00 Nasal Cannula 2.00 I & O 10/27/16 07:00 Intake Total 3190 ml Output Total 800 ml Balance 2390 ml Capillary Refill : Less Than 3 SecondsLess Than 3 Seconds General Appearance: No Apparent Distress Extremity: Normal Capillary Refill, No Pedal Edema, Other (Incision intact and scant drainage noted. ) Neurologic/Psychiatric: Alert, Other (Slightly confused. Left leg NV intact. 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 and some spasms noted-- daughter says has been present for a few years.) Results Lab Laboratory Tests 10/26/16 11:30: Prothrombin Time 12.4, INR Comment 1.0, Activated Partial Thromboplast Time 25 10/27/16 07:00: Hemoglobin 9.4#L, Hematocrit 30L, Sodium Level 134L, Potassium Level 5.0, Chloride Level 104, Carbon Dioxide Level 18L, Anion Gap 12, Blood Urea Nitrogen 37H, Creatinine 1.93H, Estimat Glomerular Filtration Rate 25, BUN/Creatinine Ratio 19, Glucose Level 137H, Calcium Level 8.0L Assessment/Plan Assessment/Plan Assess & Plan/Chief Complaint Left supracondylar femoral fracture S/P ORIF left distal femur-- continue PT. She already has a history of frequent falls and balance issues and has to use a rolling walker at home. She will need rehab or chcf. Final Diagnosis Left supracondylar femoral fracture Clinical Quality Measures DVT/VTE Risk/Contraindication: Risk Factor Score Per Nursin RFS Level Per Nursing on Admit: 4+=Very High VIRGINIA AVINA MD Oct 27, 2016 08:44
--- NOTE | 2016-10-27 10:22 | Progress Note (SOAP) ---
Subjective Date Seen by Provider: Oct 27, 2016 Time Seen by Provider: 10:17 Subjective/Events-last exam PT IS AN 81 Y/O FEMALE WHO IS A CLINIC PATIENT OF DR. GUARDADO. SHE STATES THAT SHE IS FEELING OKAY. HER REPORTS THAT THAT SHE IS NOT USUALLY AWAKE DURING THE DAYTIME. SHE HAS BEEN TAKING ALL OF HER MEDICATION AT [facility] WHEN SHE WAKES UP AND IS ALERT. SHE REPORTS THAT SHE DID NOT REALIZE THAT SHE THAT BROKE HER LEG. FAMILY REPORTS THAT STAFF HAS BEEN HAVING A LOT OF TROUBLE TRANSFERRING HER FROM BED TO CHAIR. Review of Systems General: Fatigue HEENT: No Head Aches Pulmonary: No Dyspnea, No Cough Cardiovascular: No: Chest Pain, Palpitations Gastrointestinal: No: Abdominal Pain, Nausea Genitourinary: No Dysuria Musculoskeletal: leg pain Neurological: Confusion, Weakness Objective Exam Vital Signs Date Time Temp Pulse Resp B/P (MAP) Pulse Ox O2 Delivery O2 Flow Rate FiO2 10/27/16 04:00 96.7 91 20 114/53 93 Nasal Cannula 3.00 10/27/16 00:00 97.3 90 20 104/64 93 Nasal Cannula 3.00 10/26/16 21:00 Nasal Cannula 3.00 10/26/16 19:27 96.3 83 18 120/76 96 Nasal Cannula 3.00 10/26/16 16:48 96.1 89 18 108/73 96 Nasal Cannula 3.00 10/26/16 14:45 96.8 75 18 109/73 94 Nasal Cannula 3.00 10/26/16 10:56 Nasal Cannula 2.00 I & O 10/27/16 07:00 Intake Total 3190 ml Output Total 800 ml Balance 2390 ml Capillary Refill : Less Than 3 SecondsLess Than 3 Seconds General Appearance: No Apparent Distress, WD/WN HEENT: PERRL/EOMI, Pharynx Normal Neck: Full Range of Motion, Supple Respiratory: Chest Non Tender, Lungs Clear, Normal Breath Sounds Cardiovascular: Regular Rate, Rhythm Gastrointestinal: normal bowel sounds, non tender, soft Extremity: Normal Capillary Refill, No Pedal Edema Neurologic/Psychiatric: Alert, Oriented x3, No Motor/Sensory Deficits, Normal Mood/Affect Skin: Warm/Dry Lymphatic: No Adenopathy Results Lab Laboratory Tests 10/26/16 11:30: Prothrombin Time 12.4, INR Comment 1.0, Activated Partial Thromboplast Time 25 10/27/16 07:00: Hemoglobin 9.4#L, Hematocrit 30L, Sodium Level 134L, Potassium Level 5.0, Chloride Level 104, Carbon Dioxide Level 18L, Anion Gap 12, Blood Urea Nitrogen 37H, Creatinine 1.93H, Estimat Glomerular Filtration Rate 25, BUN/Creatinine Ratio 19, Glucose Level 137H, Calcium Level 8.0L Assessment/Plan Assessment/Plan Assess & Plan/Chief Complaint LEFT FEMUR FRACTURE ABOVE LEFT KNEE PROSTHESIS CHRONIC INCONTINENCE HX OF STROKE HYPERTENSION DEMENTIA CHRONIC PAIN SYNDROME DEPRESSION OSTEOARTHRITIS LEFT SUPRACONDYLAR FEMUR FRACTURE ABOVE LEFT KNEE PROSTHESIS - DEFER TO ORTHOPEDIC SURGEON POST OP DAY #1 ON 10/27/16 - THERAPY PER ORTHO DISCRETION. - WILL NEED EVAL FOR IRF AND CHCF. CHRONIC INCONTINENCE - SUPPORTIVE CARE - URINALYSIS NEGATIVE FOR INFECTION HX OF STROKE - WILL CONTINUE WITH ASPIRIN THERAPY. HYPERTENSION - RESTART IRBESARTAN (IF NOT AVAILABLE, WILL HAVE SPOUSE BRING FROM HOME OR SUBSTITUTE HOSPITAL FORMULARY MEDICATION) DEMENTIA - RESTART NAMENDA CHRONIC PAIN SYNDROME - ON OXYCODONE AT HOME, DUE TO NEW ACUTE PAIN - WILL USE IV PAIN MEDICATION FOR CONTROL OF HER CURRENT PAIN, RESTART HOME MEDICATION TOMORROW OR FRIDAY. DEPRESSION - RESTART HOME MEDICATIONS. OSTEOARTHRITIS - ON CELEBREX - IF NOT AVAILABLE IN HOSPITAL, WILL HAVE HER SPOUSE BRING HOME MEDICATION. Clinical Quality Measures DVT/VTE Risk/Contraindication: Risk Factor Score Per Nursin RFS Level Per Nursing on Admit: 4+=Very High MAYITO LLAMAS MD Oct 27, 2016 10:22
[2016-10-27 12:00] VITALS: BP 92/54
--- NOTE | 2016-10-27 15:44 | Anesthesia-General Post-Op ---
General Patient Condition Mental Status/LOC: Same as Preop Post Op Complications Complications None Follow Up Care/Instructions Patient Instructions None needed. Anesthesia/Patient Condition Patient Condition Patient is doing well, stable vital signs, no apparent adverse anesthesia problems. Family concerned about need for Oxgyen and low urine output. Patient somewhat confused; however, is pleasant and in no distress. Pain has been under control s/p block placed by A Naif, BLAYNE and no nausea. Patient's appetite has been good today, eating both breakfast and lunch. MEGHAN EDGE CRNA Oct 27, 2016 15:44
[2016-10-27 16:07] VITALS: BP 98/54
[2016-10-27] MEDS: morphine INJ 4 MG/ML 1 ML (VIAL/SYRINGE) IVP PRN (16:53)
[2016-10-27 20:59] VITALS: BP 90/50
[2016-10-28] VITALS (10 sets, daily range): BP systolic 96–123; BP diastolic 52–68
[2016-10-28] MEDS: oxyCODONE/APAP 5/325MG (PERCOCET 5) TABLET PO PRN ×4 (01:03→20:37)
[2016-10-28] MEDS: CATHETER FLUSH 10 ML SYR IV SCH ×3 (04:55→20:47)
[2016-10-28 05:01] LABS: MEAN PLATELET VOLUME 9.6 FL (7.4-10.4); RED BLOOD COUNT 2.16 10^6/uL (4.35-5.85); RED CELL DISTRIBUTION WIDTH 12.9 % (10.0-14.5); WHITE BLOOD COUNT 7.9 10^3/uL (4.3-11.0)
[2016-10-28 05:34] LABS: ALBUMIN 2.7 GM/DL (3.2-4.5); BILIRUBIN,TOTAL 0.4 MG/DL (0.1-1.0); CALCIUM 7.7 MG/DL (8.5-10.1); CREATININE SERUM 1.43 MG/DL (0.60-1.30); POTASSIUM 4.4 MMOL/L (3.6-5.0); TOTAL PROTEIN 4.7 GM/DL (6.4-8.2)
[2016-10-28] MEDS ORDERED: ENOXAPARIN 30 MG/0.3 ML (LOVENOX) SYR SC SCH (08:00)
[2016-10-28] MEDS: NS IV 1000 ML 1,000 ML IV SCH (08:45)
[2016-10-28] MEDS: DOCUSATE SODIUM 100 MG (COLACE) CAP PO SCH ×2 (08:49→20:37)
--- NOTE | 2016-10-28 10:01 | Physical Therapy Daily Note ---
PT Daily Note-Current Subjective Patient is in bed and family agree to PT. Patient has severe dementia and is unaware of reason for hospital. Patient asked multiple times and family would repeat that she had broken her hip. Pain Numeric Pain Scale: 5-Moderate Pain Location: Left Location Body Site: Thigh Pain Description: Acute Mental Status Patient Orientation: Confused Attachments: Oxygen Transfers Functional [place] Measure 0=Not Assessed/NA 4=Minimal Assistance 1=Total Assistance 5=Supervision or Setup 2=Maximal Assistance 6=Modified [place] 3=Moderate Assistance 7=Complete IndependenceIRFPAI Quality Coding Scale 6 Independent with activity with or without an assistive device 5 Patient requires set up or clean up by helper. Patient completes activity by themselves 4 Supervision or touching assist (CGA). [place] provide cues , steadying assist 3 The helper provides less than half the effort to complete the activity 2 The helper provides more than half the effort to complete the activity 1 Dependent. The helper does all the effort to complete an activity 7 Patient refused to complete or attempt activity 9 The patient did not perform the activity before the current illness or injury 88 Not attempted due to Medical conditions or safety concerns Transfers (B, C, W/C) (FIM): 2 Scootin Rollin Supine to/from Sit: 2 Sit to/from Stand: 2 Bed to/from Chair: 2 transfer to right side due to TTWB left LE with patient unable to safely perform this skill due to dementia. Use of gait belt for safety and patient was able to assist with transfer. Weight Bearing Weight Bearing Restriction: Touch Toe Bearing Location Restriction: L LE Exercises Seated Therapy Exercises: Ankle pumps, Long arc quads Seated Reps: 15 (AAROM left LE due to pain and patient inability to follow simple direction) Assessment Family is present during treatment and state they prefer she transfer to [place] for continued care. PT notified SW of family wishes. PT to continue with POC. Patient will require LTCF to safely heal and recovery from fracture. PT Group Home Goals Security Installer Goals PT Group Home Goals Time Frame: Nov 03, 2016 Transfers (B,C,W/C) (FIM): 3 Gait (FIM): 1 Distance: 10' Gait Level of Assist: 3 Gait Assistive Device: FWW PT Plan Treatment/Plan Treatment Plan: Continue Plan of Care Treatment Plan: Bed Mobility, Education, Functional Activity [place], Functional Strength, Gait, Safety, Therapeutic Exercise, Transfers Treatment Duration: Nov 03, 2016 Frequency: Twice Daily (once a day on the weekends) Estimated Hrs Per Day: .25 hour per day (15-30 min) Patient and/or Family Agrees t: Yes Time/GCodes Time In: 911 Time Out: 934 Total Billed Treatment Time: 23 Total Billed Treatment 1 visit FA 15 min EX 8 min ORLANDO SHAH PT Oct 28, 2016 10:01
--- NOTE | 2016-10-28 10:17 | OPERATIVE REPORT ---
PROCEDURE PHYSICIAN: VIRGINIA AVINA DATE OF PROCEDURE: 10/26/2016 PREOPERATIVE OPERATION: Left supracondylar periprosthetic comminuted femoral fracture above a total knee prosthesis. POSTOPERATIVE DIAGNOSIS: Left supracondylar periprosthetic comminuted femoral fracture above a total knee prosthesis. PROCEDURE: Open reduction and internal fixation left supracondylar femoral fracture. SURGEON: Hoda ASSISTING: ERASMO Camacho. Deckhand Oyster Dredge surgeon duties: Patient positioning, retraction, wound closure, application of sterile dressings. Use of assistant professor of communication is medically indicated. ANESTHESIA: General with ultrasound guided femoral nerve block, use of ultrasound guided peripheral nerve block, medically indicated for postoperative pain control and the REDUCTION FURNACE OPERATOR HELPER was consulted for their expertise and placement of the block. COMPLICATIONS: None. BLOOD LOSS: 200 mL COMPLICATIONS: None. SPECIMENS: None. IMPLANT: Syntheses 6 hole distal femoral periprosthetic femoral plate and screws. INDICATIONS: This lady fell at home yesterday and sustained a distal femoral fracture above a knee prosthesis. She comes in for repair of the fracture. PROCEDURE IN DETAIL: After informed consent, the patient was transported to the operating room. She was placed on the operating table in the supine position. General anesthesia was induced. The left lower extremity then was prepped with ChloraPrep and draped in the sterile fashion. The C-arm was brought in, reduction could not be carried out by closed means as the femoral implant anteriorly was wedged beneath the shaft and could not be dislodged externally. Lateral incision was made over the lateral distal femur and was carried out through subcutaneous tissues. Bleeders were coagulated with electrocautery. The IT band was opened in line with the skin incision. The vastus lateralis was lifted anteriorly. The distal femoral fragment was exposed along with the femoral shaft and the periosteum was elevated. Fracture was very comminuted but there was enough bone left to get screw fixation in the fragment adjacent to the knee replacement. The C-arm was brought in and positioned lateral view. Reduction forceps was placed on the distal fragment which was displaced into significant recurvatum and the knee implant was dislodged from under the shaft fragment and the distal fragment then was flexed up into a normal alignment as seen on the lateral views. Next, the shortest plate in this set was a 6 hole was chosen. It was placed over the lateral femur and adjusted as far distally as it could go. A guide pin then was placed distally. Then proximally a drill was used to drill the threaded plate device to secure the plate to the shaft after adjusting the plate to where it would be in satisfactory position. AP and lateral images were taken confirming satisfactory reduction. Appropriate varus valgus alignment was adjusted and then total of 6 distal locking screws were placed over guide pins in the distal fragment along with the central large diameter locking screw over the initial guide pin. Excellent purchase was obtained and all the guide pins were removed. Next, proximally a total of four 4.5 mm bicortical screws were placed in the shaft fragment and a good purchase. The C-arm was brought in. It appeared that there was satisfactory reduction, position and length of all implants and the fracture was not well aligned. The wound was thoroughly irrigated. Hardcopy C-arm films were saved to the PAC system and then the IT band closed with a running double layered number 2 SRATAFIX suture followed by running and interrupted 0 Vicryl and 2-0 Vicryl for subcutaneous tissues and meggan on the skin. Sterile dressing was applied. The patient then was taken to the recovery room in stable condition having tolerated this procedure well. At the conclusion of the case, the REDUCTION FURNACE OPERATOR HELPER did an ultrasound-guided femoral nerve block. Job ID: [id number] Dictated Date: 10/26/2016 13:07:23 Business System Consultant Date: 10/28/2016 09:56:46 / ivis
[2016-10-28] MEDS ORDERED: PARO40TA3 PO (12:15)
[2016-10-28] MEDS ORDERED: CELE-63 PO (12:15)
[2016-10-28] MEDS ORDERED: LMFO1TAB PO (12:15)
[2016-10-28] MEDS ORDERED: IRBE1TAB41 PO (12:15)
[2016-10-28] MEDS ORDERED: BUPR150T7 PO (12:15)
[2016-10-28] MEDS ORDERED: MEMA10TA22 PO (12:15)
--- NOTE | 2016-10-28 12:34 | Progress Note (SOAP) ---
Subjective Date Seen by Provider: Oct 28, 2016 Time Seen by Provider: 12:31 Subjective/Events-last exam Fwup left supracondylar femur fracture, dementia without behavior disorder, hypertension, DM II. Sitting up in bed eating. No complaints of pain. Objective Exam Vital Signs Date Time Temp Pulse Resp B/P (MAP) Pulse Ox O2 Delivery O2 Flow Rate FiO2 10/28/16 09:00 94 Nasal Cannula 3.00 10/28/16 08:00 97.3 82 20 123/56 94 Nasal Cannula 3.00 10/28/16 04:00 97.5 84 18 102/55 94 Nasal Cannula 3.00 10/28/16 00:00 96.0 116 20 103/54 92 Nasal Cannula 3.00 10/27/16 20:59 97.3 84 20 90/50 92 Nasal Cannula 3.00 10/27/16 20:00 Nasal Cannula 2.00 10/27/16 17:11 Nasal Cannula 2.00 10/27/16 16:07 98.6 108 20 98/54 90 Nasal Cannula 3.00 I & O 10/28/16 07:00 Intake Total 1720 ml Output Total 1625 ml Balance 95 ml Capillary Refill : Less Than 3 SecondsLess Than 3 Seconds General Appearance: No Apparent Distress Neck: Supple Respiratory: Lungs Clear Cardiovascular: Regular Rate, Rhythm Gastrointestinal: normal bowel sounds, non tender, soft Extremity: Non Tender, No Calf Tenderness, No Pedal Edema Neurologic/Psychiatric: Alert, Disoriented x3 Skin: Other (left leg dressing dry and in place) Results Lab Laboratory Tests 10/28/16 04:20: White Blood Count 7.9, Red Blood Count 2.16L, Hemoglobin 7.0L, Hematocrit 22L, Mean Corpuscular Volume 101H, Mean Corpuscular Hemoglobin 32, Mean Corpuscular Hemoglobin Concent 32, Red Cell Distribution Width 12.9, Platelet Count 186, Mean Platelet Volume 9.6, Sodium Level 135, Potassium Level 4.4, Chloride Level 107, Carbon Dioxide Level 19L, Anion Gap 9, Blood Urea Nitrogen 38H, Creatinine 1.43H, Estimat Glomerular Filtration Rate 35, BUN/Creatinine Ratio 27, Glucose Level 116H, Calcium Level 7.7L, Total Bilirubin 0.4, Aspartate Amino Transf (AST /SGOT) 23, Alanine Aminotransferase (ALT/SGPT) 10, Alkaline Phosphatase 45, Total Protein 4.7L, Albumin 2.7L Microbiology 10/26/16 MRSA Screen - Final, Complete MRSA not isolated Assessment/Plan Assessment/Plan Assess & Plan/Chief Complaint 1. Left supracondylar femur fracture--S/P surgery 2. Post-op Anemia--transfuse 2u pRBCs today 3. Hypertension--stable 4. DMII--SSI 5. Dementia without Behavior Disorder--back on home meds Clinical Quality Measures DVT/VTE Risk/Contraindication: Risk Factor Score Per Nursin RFS Level Per Nursing on Admit: 4+=Very High SANDRO GUARDADO DO Oct 28, 2016 12:34
[2016-10-28] MEDS ORDERED: GLUC-116 PO (12:36)
[2016-10-28] MEDS ORDERED: MULT-1029 PO (12:36)
[2016-10-28] MEDS ORDERED: ECHI350C PO (12:36)
--- NOTE | 2016-10-28 14:23 | Progress Note (SOAP) ---
CEZAR AYALA 10/28/16 1423: Subjective Date Seen by Provider: Oct 28, 2016 Time Seen by Provider: 07:45 Subjective/Events-last exam Sitting in bed eating breakfast daughter at bedside. No complaints of pain, is unaware of recent events and has hx of dementia. Daughter states she only required pain medications once through the night. Denies new symptoms today such as shortness of breath, fever, chills, dizziness. Review of Systems General: No Chills, No Night Sweats Cardiovascular: No: Chest Pain, Palpitations Gastrointestinal: No: Abdominal Pain, Nausea, Vomiting Musculoskeletal: No: leg pain Neurological: Confusion, No: Change in speech, Numbness Objective Exam Vital Signs Date Time Temp Pulse Resp B/P (MAP) Pulse Ox O2 Delivery O2 Flow Rate FiO2 10/28/16 14:00 97.8 78 100/68 10/28/16 09:00 94 Nasal Cannula 3.00 10/28/16 08:00 97.3 82 20 123/56 94 Nasal Cannula 3.00 10/28/16 04:00 97.5 84 18 102/55 94 Nasal Cannula 3.00 10/28/16 00:00 96.0 116 20 103/54 92 Nasal Cannula 3.00 10/27/16 20:59 97.3 84 20 90/50 92 Nasal Cannula 3.00 10/27/16 20:00 Nasal Cannula 2.00 10/27/16 17:11 Nasal Cannula 2.00 10/27/16 16:07 98.6 108 20 98/54 90 Nasal Cannula 3.00 I & O 10/28/16 07:00 Intake Total 1720 ml Output Total 1625 ml Balance 95 ml Capillary Refill : Less Than 3 SecondsLess Than 3 Seconds Neck: Normal Inspection Respiratory: No Accessory Muscle Use, No Respiratory Distress Extremity: Normal Capillary Refill, No Calf Tenderness, Other (bandage clean and dry) Skin: Normal Color Results Lab Laboratory Tests 10/28/16 04:20: White Blood Count 7.9, Red Blood Count 2.16L, Hemoglobin 7.0L, Hematocrit 22L, Mean Corpuscular Volume 101H, Mean Corpuscular Hemoglobin 32, Mean Corpuscular Hemoglobin Concent 32, Red Cell Distribution Width 12.9, Platelet Count 186, Mean Platelet Volume 9.6, Sodium Level 135, Potassium Level 4.4, Chloride Level 107, Carbon Dioxide Level 19L, Anion Gap 9, Blood Urea Nitrogen 38H, Creatinine 1.43H, Estimat Glomerular Filtration Rate 35, BUN/Creatinine Ratio 27, Glucose Level 116H, Calcium Level 7.7L, Total Bilirubin 0.4, Aspartate Amino Transf (AST /SGOT) 23, Alanine Aminotransferase (ALT/SGPT) 10, Alkaline Phosphatase 45, Total Protein 4.7L, Albumin 2.7L Microbiology 10/26/16 MRSA Screen - Final, Complete MRSA not isolated Assessment/Plan Assessment/Plan Assess & Plan/Chief Complaint Assessment: s/p orif left femur for supracondylar fracture dementia abl anemia Plan: nwb to lle pain control dvt prophylaxis recieving prbc monitor labs Clinical Quality Measures DVT/VTE Risk/Contraindication: Risk Factor Score Per Nursin RFS Level Per Nursing on Admit: 4+=Very High MERCY MEDINA DO 10/29/16 0727: Objective Exam General Appearance: No Apparent Distress CEZAR AYALA Oct 28, 2016 14:23 MERCY MEDINA DO Oct 29, 2016 07:27
[2016-10-28] MEDS: morphine INJ 4 MG/ML 1 ML (VIAL/SYRINGE) IVP PRN ×2 (14:25→20:38)
--- NOTE | 2016-10-28 16:31 | Physical Therapy Daily Note ---
PT Daily Note-Current Subjective Patient had just received multiple pain medications and is lethargic. Family agrees to exercises. Pain Numeric Pain Scale: 8 Location: Left Location Body Site: Thigh Pain Description: Acute Comment: FLACC Mental Status Patient Orientation: Confused Attachments: IV Transfers Functional [place] Measure 0=Not Assessed/NA 4=Minimal Assistance 1=Total Assistance 5=Supervision or Setup 2=Maximal Assistance 6=Modified [place] 3=Moderate Assistance 7=Complete IndependenceIRFPAI Quality Coding Scale 6 Independent with activity with or without an assistive device 5 Patient requires set up or clean up by helper. Patient completes activity by themselves 4 Supervision or touching assist (CGA). [place] provide cues , steadying assist 3 The helper provides less than half the effort to complete the activity 2 The helper provides more than half the effort to complete the activity 1 Dependent. The helper does all the effort to complete an activity 7 Patient refused to complete or attempt activity 9 The patient did not perform the activity before the current illness or injury 88 Not attempted due to Medical conditions or safety concerns Exercises Supine Ex: Ankle pumps, Heel Slides, Straight leg raise Supine Reps: 15 (PROM bilateral LE's x 2 sets) Assessment Current Status: Fair Progress PT Renewals Representative Goals Long-Term Goals PT Renewals Representative Goals Time Frame: Nov 03, 2016 Transfers (B,C,W/C) (FIM): 3 Gait (FIM): 1 Distance: 10' Gait Level of Assist: 3 Gait Assistive Device: FWW PT Plan Treatment/Plan Treatment Plan: Continue Plan of Care Treatment Plan: Bed Mobility, Education, Functional Activity Minerva, Functional Strength, Gait, Safety, Therapeutic Exercise, Transfers Treatment Duration: Nov 03, 2016 Frequency: Twice Daily (once a day on the weekends) Estimated Hrs Per Day: .25 hour per day (15-30 min) Patient and/or Family Agrees t: Yes Time/GCodes Time In: 1531 Time Out: 1541 Total Billed Treatment Time: 10 Total Billed Treatment 1 visit EX 10 min ORLANDO SHAH PT Oct 28, 2016 16:31
[2016-10-28] MEDS: inSUlin (REGULAR) HUMAN 1 UNIT/0.01 ML (CHARGE PER UNIT) SC SCH ×2 (16:45→20:47)
[2016-10-28] MEDS: MEMANTINE 10 MG (NAMENDA) TABLET PO SCH (20:37)
[2016-10-28] MEDS ORDERED: [UNRECOGNIZED DRUG - OTHER] PO SCH (21:00)
[2016-10-29] VITALS: BP 103/57
[2016-10-29] MEDS: morphine INJ 4 MG/ML 1 ML (VIAL/SYRINGE) IVP PRN ×2 (01:33→05:16)
[2016-10-29] MEDS: oxyCODONE/APAP 5/325MG (PERCOCET 5) TABLET PO PRN ×4 (01:33→20:18)
[2016-10-29] MEDS: HALOPERIDOL 5 MG/ML (HALDOL) AMP IV PRN (02:25)
[2016-10-29] MEDS: inSUlin (REGULAR) HUMAN 1 UNIT/0.01 ML (CHARGE PER UNIT) SC SCH ×4 (05:16→20:20)
[2016-10-29] MEDS: CATHETER FLUSH 10 ML SYR IV SCH ×3 (05:16→20:19)
[2016-10-29 05:18] VITALS: BP 122/72
[2016-10-29] MEDS: MULTIVIT W/MINERALS TAB (THERAGRAN M) PO SCH (05:20)
[2016-10-29] MEDS: VITAMIN D3 1,000 UNITS (CHOLECALCIFEROL) TABLET PO SCH (05:20)
[2016-10-29 05:26] LABS: MEAN PLATELET VOLUME 9.2 FL (7.4-10.4); RED BLOOD COUNT 2.93 10^6/uL (4.35-5.85); RED CELL DISTRIBUTION WIDTH 16.1 % (10.0-14.5); WHITE BLOOD COUNT 7.7 10^3/uL (4.3-11.0)
[2016-10-29 06:10] LABS: ALANINE AMINOTRANSFERASE 13 U/L (0-55); ALBUMIN 2.9 GM/DL (3.2-4.5); ANION GAP 10 MMOL/L (5-14); ASPARTATE AMINO TRANSFERASE 21 U/L (5-34); BILIRUBIN,TOTAL 0.7 MG/DL (0.1-1.0); BLOOD UREA NITROGEN 30 MG/DL (7-18); BUN/CREATININE RATIO 38; CALCIUM 8.4 MG/DL (8.5-10.1); CARBON DIOXIDE 17 MMOL/L (21-32); CHLORIDE 110 MMOL/L (98-107); GFR ESTIMATED > 60; GLUCOSE 122 MG/DL (70-105); SODIUM 137 MMOL/L (135-145); TOTAL PROTEIN 5.2 GM/DL (6.4-8.2)
[2016-10-29 07:33] VITALS: BP 134/79
[2016-10-29] MEDS: buPROPion SR 150 MG (WELLBUTRIN SR) TAB PO SCH (09:34)
[2016-10-29] MEDS: HYDROCHLOROTHIAZIDE 12.5 MG (HCTZ) CAP PO SCH (09:35)
[2016-10-29] MEDS: MEMANTINE 10 MG (NAMENDA) TABLET PO SCH ×2 (09:35→20:17)
[2016-10-29] MEDS: IRBESARTAN 150 MG (AVAPRO) TAB PO SCH (09:35)
[2016-10-29] MEDS: DOCUSATE SODIUM 100 MG (COLACE) CAP PO SCH ×2 (09:35→20:17)
[2016-10-29] MEDS: PARoxetine 20 MG (PAXIL) TAB PO SCH (09:35)
[2016-10-29] MEDS: ENOXAPARIN 40 MG/0.4 ML (LOVENOX) SYR SC SCH (09:36)
[2016-10-29 12:00] VITALS: BP 134/73
--- NOTE | 2016-10-29 12:06 | Physical Therapy Daily Note ---
PT Daily Note-Current Subjective Patient is in recliner and family request patient return to bed via PT. Pain Numeric Pain Scale: 5-Moderate Pain Location: Left Location Body Site: Thigh Pain Description: Acute Mental Status Patient Orientation: Confused Transfers Functional [place] Measure 0=Not Assessed/NA 4=Minimal Assistance 1=Total Assistance 5=Supervision or Setup 2=Maximal Assistance 6=Modified [place] 3=Moderate Assistance 7=Complete IndependenceIRFPAI Quality Coding Scale 6 Independent with activity with or without an assistive device 5 Patient requires set up or clean up by helper. Patient completes activity by themselves 4 Supervision or touching assist (CGA). [place] provide cues , steadying assist 3 The helper provides less than half the effort to complete the activity 2 The helper provides more than half the effort to complete the activity 1 Dependent. The helper does all the effort to complete an activity 7 Patient refused to complete or attempt activity 9 The patient did not perform the activity before the current illness or injury 88 Not attempted due to Medical conditions or safety concerns Transfers (B, C, W/C) (FIM): 1 Scootin Rollin Supine to/from Sit: 1 Sit to/from Stand: 1 Bed to/from Chair: 1 dependent assist SPT x 2 to the right to minimize left LE TTWB Weight Bearing Weight Bearing Restriction: Touch Toe Bearing Location Restriction: L LE Exercises Supine Ex: Ankle pumps, Heel Slides, Straight leg raise Supine Reps: 10 (AAROM bilateral LE) Seated Therapy Exercises: Ankle pumps, Long arc quads Seated Reps: 10 (AAROM left LE) Assessment Current Status: Poor Progress Patient continues to be limited due to inability to comply with TTWB left LE. Plan dismissal to [place] this week. PT Intermediate Goals Intermediate Goals PT Intermediate Goals Time Frame: Nov 03, 2016 Transfers (B,C,W/C) (FIM): 3 Gait (FIM): 1 Distance: 10' Gait Level of Assist: 3 Gait Assistive Device: FWW PT Plan Treatment/Plan Treatment Plan: Continue Plan of Care Treatment Plan: Bed Mobility, Education, Functional Activity Minerva, Functional Strength, Gait, Safety, Therapeutic Exercise, Transfers Treatment Duration: Nov 03, 2016 Frequency: Twice Daily (once a day on the weekends) Estimated Hrs Per Day: .25 hour per day (15-30 min) Patient and/or Family Agrees t: Yes Time/GCodes Time In: 1131 Time Out: 1154 Total Billed Treatment Time: 23 Total Billed Treatment 1 visit FA 10 min EX 13 min ORLANDO SHAH PT Oct 29, 2016 12:06
--- NOTE | 2016-10-29 12:56 | Progress Note-Standard ---
Standard Progress Note Progress Notes/Assess & Plan Date Seen by Provider: Oct 29, 2016 Time Seen by Provider: 12:53 Progress/Assessment & Plan She is postop day 3 ORIF of left femur She is sundowning and Dr. Henson is addressing that with her meds and setting up a longterm The left thigh incision is intact and has minimal drainage. Diagnosis: Left supracondylar femoral fracture Plan: Continue PT as tolerated. I will sign off and see her in the office in 2 weeks for staple removal alf for jail. Final Diagnosis Left supracondylar femoral fracture VIRGINIA AVINA MD Oct 29, 2016 12:55
--- NOTE | 2016-10-29 13:08 | Progress Note (SOAP) ---
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 Sitting up in bed eating. More groggy today. ing last night and had to get haldol dose. Objective Exam Vital Signs Date Time Temp Pulse Resp B/P (MAP) Pulse Ox O2 Delivery O2 Flow Rate FiO2 10/29/16 12:00 98.0 70 19 134/73 Nasal Cannula 3.00 10/29/16 07:33 96.9 76 19 134/79 96 Nasal Cannula 3.00 10/29/16 05:18 96.3 84 20 122/72 97 Nasal Cannula 3.00 10/29/16 00:00 96.9 81 20 103/57 97 Nasal Cannula 3.00 10/28/16 21:00 Nasal Cannula 2.00 10/28/16 20:00 97.8 77 20 97/52 91 Nasal Cannula 3.00 10/28/16 18:39 98.1 68 105/56 10/28/16 16:52 76 18 96/58 Nasal Cannula 2.00 10/28/16 16:37 97.0 80 106/59 10/28/16 16:30 97.0 80 20 106/59 96 Nasal Cannula 3.00 10/28/16 15:54 Nasal Cannula 3.00 10/28/16 14:15 97.5 82 16 98/54 97 Nasal Cannula 10/28/16 14:00 97.8 78 100/68 I & O 10/29/16 07:00 Intake Total 3310 ml Output Total 650 ml Balance 2660 ml Capillary Refill : Less Than 3 SecondsLess Than 3 Seconds General Appearance: Mild Distress (groggy) Respiratory: Lungs Clear Gastrointestinal: normal bowel sounds, non tender, soft Extremity: Non Tender, No Calf Tenderness, No Pedal Edema Neurologic/Psychiatric: Alert, Disoriented x3 Skin: Other (left leg dressing in place and dry) Results Lab Laboratory Tests 10/28/16 16:27: Glucometer 117H 10/28/16 20:39: Glucometer 145H 10/29/16 05:16: Glucometer 124H, White Blood Count 7.7, Red Blood Count 2.93L, Hemoglobin 9.0#L , Hematocrit 28L, Mean Corpuscular Volume 96, Mean Corpuscular Hemoglobin 31, Mean Corpuscular Hemoglobin Concent 32, Red Cell Distribution Width 16.1H, Platelet Count 206, Mean Platelet Volume 9.2, Sodium Level 137, Potassium Level 4.0, Chloride Level 110H, Carbon Dioxide Level 17L, Anion Gap 10, Blood Urea Nitrogen 30H, Creatinine 0.80, Estimat Glomerular Filtration Rate > 60, BUN/ Creatinine Ratio 38, Glucose Level 122H, Calcium Level 8.4L, Total Bilirubin 0.7 , Aspartate Amino Transf (AST/SGOT) 21, Alanine Aminotransferase (ALT/SGPT) 13, Alkaline Phosphatase 53, Total Protein 5.2L, Albumin 2.9L 10/29/16 08:00: Glucometer 102 10/29/16 12:33: Lab Scanned Report Transfusion Reaction Form Microbiology 10/26/16 MRSA Screen - Final, Complete MRSA not isolated Assessment/Plan Assessment/Plan Assess & Plan/Chief Complaint 1. Left supracondylar femur fracture--S/P surgery, oral for pain control 2. Post-op Anemia--S/P transfusion 3. Hypertension--stable 4. DMII--SSI 5. Dementia without Behavior Disorder--back on home meds, add seroquel q HS for Clinical Quality Measures DVT/VTE Risk/Contraindication: Risk Factor Score Per Nursin RFS Level Per Nursing on Admit: 4+=Very High SANDRO GUARDADO DO Oct 29, 2016 13:08
[2016-10-29] MEDS ORDERED: PANTOPRAZOLE 40 MG/10 ML (PROTONIX) VIAL IV NR (13:15)
[2016-10-29] MEDS ORDERED: MILK OF MAGNESIA 400 MG/5 ML 30 ML UDC PO NR (13:15)
--- NOTE | 2016-10-29 14:09 | Physical Therapy Daily Note ---
PT Daily Note-Current Subjective Patient is in bed, lethargic, family agrees to PT. Pain Numeric Pain Scale: 5-Moderate Pain Location: Left Location Body Site: Thigh Pain Description: Acute Mental Status Patient Orientation: Confused Transfers Functional [place] Measure 0=Not Assessed/NA 4=Minimal Assistance 1=Total Assistance 5=Supervision or Setup 2=Maximal Assistance 6=Modified [place] 3=Moderate Assistance 7=Complete IndependenceIRFPAI Quality Coding Scale 6 Independent with activity with or without an assistive device 5 Patient requires set up or clean up by helper. Patient completes activity by themselves 4 Supervision or touching assist (CGA). [place] provide cues , steadying assist 3 The helper provides less than half the effort to complete the activity 2 The helper provides more than half the effort to complete the activity 1 Dependent. The helper does all the effort to complete an activity 7 Patient refused to complete or attempt activity 9 The patient did not perform the activity before the current illness or injury 88 Not attempted due to Medical conditions or safety concerns Transfers (B, C, W/C) (FIM): 1 Scootin Rollin dependent assist to position side lying right with pillows between LE's and behind back; education with family on positioning techniques Exercises Supine Ex: Ankle pumps, Heel Slides, Straight leg raise, Hip abd/add Supine Reps: 10 (PROM bilateral LE x 2 sets) Assessment Current Status: Poor Progress Per family, patient is to be NWB left LE per Dr. Drummond. Patient is unable to comply with this due to severe dementia. Plan dismissal to [place] this week. 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 Retirement Goals PT Retirement Goals Time Frame: Nov 03, 2016 Transfers (B,C,W/C) (FIM): 3 Gait (FIM): 1 Distance: 10' Gait Level of Assist: 3 Gait Assistive Device: FWW PT Plan Treatment/Plan Treatment Plan: Continue Plan of Care Treatment Plan: Bed Mobility, Education, Functional Activity Minerva, Functional Strength, Gait, Safety, Therapeutic Exercise, Transfers Treatment Duration: Nov 03, 2016 Frequency: Twice Daily (once a day on the weekends) Estimated Hrs Per Day: .25 hour per day (15-30 min) Patient and/or Family Agrees t: Yes Time/GCodes Time In: 1341 Time Out: 1351 Total Billed Treatment Time: 10 Total Billed Treatment 1 visit EX 10 min ORLANDO SHAH PT Oct 29, 2016 14:09
[2016-10-29 15:44] VITALS: BP 111/71
[2016-10-29] MEDS: ALPRAZolam 0.25 MG (XANAX) TAB PO PRN (16:37)
[2016-10-29 17:08] LABS: BILIRUBIN,URINE NEGATIVE (NEGATIVE); KETONES,URINE NEGATIVE (NEGATIVE); LEUKOCYTE ESTERASE ,URINE 1+ (NEGATIVE); NITRITE,URINE NEGATIVE (NEGATIVE); PH,URINE 6 (5-9); PROTEIN,URINE 1+ (NEGATIVE); UROBILINOGEN,URINE NORMAL (NORMAL)
[2016-10-29 19:59] VITALS: BP 123/70
[2016-10-29] MEDS ORDERED: QUEtiapine 25 MG (SEROquel) TAB IMMEDIATE RELEASE PO SCH (21:00)
[2016-10-30] VITALS: BP 112/66
[2016-10-30 04:00] VITALS: BP 112/71
[2016-10-30] MEDS: morphine INJ 4 MG/ML 1 ML (VIAL/SYRINGE) IVP PRN (04:58)
[2016-10-30] MEDS: ALPRAZolam 0.25 MG (XANAX) TAB PO PRN ×3 (05:03→21:20)
[2016-10-30 05:10] LABS: MEAN PLATELET VOLUME 9.4 FL (7.4-10.4); RED BLOOD COUNT 3.01 10^6/uL (4.35-5.85); RED CELL DISTRIBUTION WIDTH 15.8 % (10.0-14.5); WHITE BLOOD COUNT 6.1 10^3/uL (4.3-11.0)
[2016-10-30 05:48] LABS: ALANINE AMINOTRANSFERASE 13 U/L (0-55); ALBUMIN 2.9 GM/DL (3.2-4.5); ANION GAP 6 MMOL/L (5-14); ASPARTATE AMINO TRANSFERASE 18 U/L (5-34); BILIRUBIN,TOTAL 0.7 MG/DL (0.1-1.0); BLOOD UREA NITROGEN 23 MG/DL (7-18); BUN/CREATININE RATIO 32; CALCIUM 8.8 MG/DL (8.5-10.1); CARBON DIOXIDE 24 MMOL/L (21-32); CHLORIDE 109 MMOL/L (98-107); CREATININE SERUM 0.73 MG/DL (0.60-1.30); GFR ESTIMATED > 60; GLUCOSE 111 MG/DL (70-105); POTASSIUM 4.5 MMOL/L (3.6-5.0); SODIUM 139 MMOL/L (135-145); TOTAL PROTEIN 5.1 GM/DL (6.4-8.2)
[2016-10-30] MEDS: inSUlin (REGULAR) HUMAN 1 UNIT/0.01 ML (CHARGE PER UNIT) SC SCH ×4 (06:08→21:05)
[2016-10-30] MEDS: CATHETER FLUSH 10 ML SYR IV SCH ×3 (06:09→20:17)
[2016-10-30] MEDS: VITAMIN D3 1,000 UNITS (CHOLECALCIFEROL) TABLET PO SCH (07:49)
[2016-10-30] MEDS: MULTIVIT W/MINERALS TAB (THERAGRAN M) PO SCH (07:49)
[2016-10-30 08:00] VITALS: BP 137/82
[2016-10-30] MEDS: HYDROCHLOROTHIAZIDE 12.5 MG (HCTZ) CAP PO SCH (08:53)
[2016-10-30] MEDS: buPROPion SR 150 MG (WELLBUTRIN SR) TAB PO SCH (08:53)
[2016-10-30] MEDS: PARoxetine 20 MG (PAXIL) TAB PO SCH (08:53)
[2016-10-30] MEDS: IRBESARTAN 150 MG (AVAPRO) TAB PO SCH (08:53)
[2016-10-30] MEDS: MEMANTINE 10 MG (NAMENDA) TABLET PO SCH ×2 (08:53→20:16)
[2016-10-30] MEDS: ENOXAPARIN 40 MG/0.4 ML (LOVENOX) SYR SC SCH (08:53)
[2016-10-30] MEDS: DOCUSATE SODIUM 100 MG (COLACE) CAP PO SCH ×2 (08:53→20:16)
[2016-10-30] MEDS: oxyCODONE/APAP 5/325MG (PERCOCET 5) TABLET PO PRN ×3 (08:54→18:36)
[2016-10-30] MEDS ORDERED: PANTOPRAZOLE 40 MG/10 ML (PROTONIX) VIAL IV SCH (09:00)
[2016-10-30 12:00] VITALS: BP 128/60
--- NOTE | 2016-10-30 13:01 | Progress Note (SOAP) ---
Subjective Date Seen by Provider: Oct 30, 2016 Time Seen by Provider: 12:59 Subjective/Events-last exam Fwup left supracondylar femur fracture, dementia without behavior disorder, hypertension, DM II. Nursing reports agitation/anxiety ongoing at times. Still no BM per . Objective Exam Vital Signs Date Time Temp Pulse Resp B/P (MAP) Pulse Ox O2 Delivery O2 Flow Rate FiO2 10/30/16 09:00 Room Air 10/30/16 08:00 98.0 80 16 137/82 94 Nasal Cannula 3.00 10/30/16 04:00 97.8 95 22 112/71 93 Nasal Cannula 3.00 10/30/16 00:00 98.2 83 18 112/66 94 Nasal Cannula 3.00 10/29/16 21:00 Nasal Cannula 2.00 10/29/16 19:59 97.9 76 19 123/70 98 Nasal Cannula 3.00 10/29/16 15:44 97.7 76 19 111/71 98 Nasal Cannula 3.00 10/29/16 15:41 Nasal Cannula 3.00 I & O 10/30/16 07:00 Intake Total 660 ml Output Total 1475 ml Balance -815 ml Capillary Refill : Less Than 3 SecondsLess Than 3 Seconds General Appearance: No Apparent Distress Neck: Supple Respiratory: Lungs Clear Cardiovascular: Regular Rate, Rhythm Gastrointestinal: normal bowel sounds, non tender, soft Extremity: Non Tender, No Calf Tenderness, No Pedal Edema Neurologic/Psychiatric: Alert, Disoriented x3 Skin: Other (left leg dressing dry and in place) Results Lab Laboratory Tests 10/29/16 16:09: Glucometer 117H 10/29/16 17:00: Urine Color YELLOW, Urine Clarity SLIGHTLY CLOUDY, Urine pH 6, Urine Specific [place] 1.015L, Urine Protein 1+H, Urine Glucose (UA) NEGATIVE, Urine Ketones NEGATIVE, Urine Nitrite NEGATIVE, Urine Bilirubin NEGATIVE, Urine Urobilinogen NORMAL, Urine Leukocyte Esterase 1+H, Urine RBC (Auto) NEGATIVE, Urine RBC NONE , Urine WBC 2-5, Urine Squamous Epithelial Cells 2-5, Urine Crystals NONE, Urine Bacteria TRACE, Urine Casts NONE, Urine Mucus SMALLH, Urine Culture Indicated NO 10/29/16 20:19: Glucometer 96 10/30/16 04:20: White Blood Count 6.1, Red Blood Count 3.01L, Hemoglobin 9.4L, Hematocrit 30L, Mean Corpuscular Volume 99, Mean Corpuscular Hemoglobin 31, Mean Corpuscular Hemoglobin Concent 32, Red Cell Distribution Width 15.8H, Platelet Count 264, Mean Platelet Volume 9.4, Sodium Level 139, Potassium Level 4.5, Chloride Level 109H, Carbon Dioxide Level 24, Anion Gap 6, Blood Urea Nitrogen 23H, Creatinine 0.73, Estimat Glomerular Filtration Rate > 60, BUN/Creatinine Ratio 32, Glucose Level 111H, Calcium Level 8.8, Total Bilirubin 0.7, Aspartate Amino Transf (AST/ SGOT) 18, Alanine Aminotransferase (ALT/SGPT) 13, Alkaline Phosphatase 55, Total Protein 5.1L, Albumin 2.9L Microbiology 10/26/16 MRSA Screen - Final, Complete MRSA not isolated Assessment/Plan Assessment/Plan Assess & Plan/Chief Complaint 1. Left supracondylar femur fracture--S/P surgery, oral for pain control, to [place] tomorrow as states not prepared to go today 2. Post-op Anemia--S/P transfusion, H/H stable 3. Hypertension--stable 4. DMII--SSI 5. Dementia without Behavior Disorder--back on home meds, change seroquel to depakote and increase xanax to QID prn Clinical Quality Measures DVT/VTE Risk/Contraindication: Risk Factor Score Per Nursin RFS Level Per Nursing on Admit: 4+=Very High SANDRO GUARDADO DO Oct 30, 2016 1:01 pm
[2016-10-30] MEDS ORDERED: MILK OF MAGNESIA 400 MG/5 ML 30 ML UDC PO ONE (13:15)
--- NOTE | 2016-10-30 14:59 | Physical Therapy Daily Note ---
PT Daily Note-Current Subjective Pt laying Supine in bed. Sp & family ask if Pt could return a little later due to pt not sleeping well and just got to sleep. Upon returning, pt is still very lethargic but agrees to PT. Pain Location: No Pain Reported Mental Status Patient Orientation: Person, Confused Transfers Functional [place] Measure 0=Not Assessed/NA 4=Minimal Assistance 1=Total Assistance 5=Supervision or Setup 2=Maximal Assistance 6=Modified [place] 3=Moderate Assistance 7=Complete IndependenceIRFPAI Quality Coding Scale 6 Independent with activity with or without an assistive device 5 Patient requires set up or clean up by helper. Patient completes activity by themselves 4 Supervision or touching assist (CGA). [place] provide cues , steadying assist 3 The helper provides less than half the effort to complete the activity 2 The helper provides more than half the effort to complete the activity 1 Dependent. The helper does all the effort to complete an activity 7 Patient refused to complete or attempt activity 9 The patient did not perform the activity before the current illness or injury 88 Not attempted due to Medical conditions or safety concerns Exercises Supine Ex: Ankle pumps, Quad Set, Heel Slides, Straight leg raise, Hip abd/add Supine Reps: 10 Treatments PT and Sp discussed questions he had about WB status as well as going to SNF and how long it takes to heal. Pt completed AAROM Supine Ex. Pt fell back asleep at end of tx with all needs met. Assessment Pt was very lethargic and Ex was only AAROM. 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 Goals Jail Goals PT Jail Goals Time Frame: Nov 03, 2016 Transfers (B,C,W/C) (FIM): 3 Gait (FIM): 1 Distance: 10' Gait Level of Assist: 3 Gait Assistive Device: FWW PT Plan Problem List Problem List: Activity Tolerance, Functional Strength, Safety, Balance, Gait, Transfer, Bed Mobility, ROM Treatment/Plan Treatment Plan: Continue Plan of Care Treatment Plan: Bed Mobility, Education, Functional Activity Minerva, Functional Strength, Gait, Safety, Therapeutic Exercise, Transfers Treatment Duration: Nov 03, 2016 Frequency: Twice Daily (once a day on the weekends) Estimated Hrs Per Day: .25 hour per day (15-30 min) Patient and/or Family Agrees t: Yes Safety Risks/Education Patient Education: Transfer Techniques, Correct Positioning, Safety Issues Teaching Recipient: Patient, Significant Other Teaching Methods: Discussion Response to Teaching: Verbalize Understanding (Sp only) Time/GCodes Time In: 1120 Time Out: 1140 Total Billed Treatment Time: 20 Total Billed Treatment visit, Ex (20m) KRISS KOLB WAREHOUSE STOCK CLERK Oct 30, 2016 14:59
--- NOTE | 2016-10-30 16:07 | Physical Therapy Daily Note ---
PT Daily Note-Current Subjective Pt laying Supine in bed upon arrival. Pt is more awake then morning tx although reports from Sp of pt being tired. Pt has visitor show up shortly into tx and pt doesn't want to Ex or transfer. Pt agrees to Pt ed for tx. Pain Location: No Pain Reported Mental Status Patient Orientation: Person, Confused Transfers Functional [place] Measure 0=Not Assessed/NA 4=Minimal Assistance 1=Total Assistance 5=Supervision or Setup 2=Maximal Assistance 6=Modified [place] 3=Moderate Assistance 7=Complete IndependenceIRFPAI Quality Coding Scale 6 Independent with activity with or without an assistive device 5 Patient requires set up or clean up by helper. Patient completes activity by themselves 4 Supervision or touching assist (CGA). [place] provide cues , steadying assist 3 The helper provides less than half the effort to complete the activity 2 The helper provides more than half the effort to complete the activity 1 Dependent. The helper does all the effort to complete an activity 7 Patient refused to complete or attempt activity 9 The patient did not perform the activity before the current illness or injury 88 Not attempted due to Medical conditions or safety concerns Treatments Pt, Sp & PT discuss expectations of discharge tomorrow to [facility] per Dr Henson as reported by Sp. Sp had questions regarding hospital discharge (when , what is needed, who transports & Therapy at SNF). Pt is very confused and is not understanding information given. Pt rests Supine in bed visiting at end of tx with all needs met. Assessment Current Status: Poor Progress Pt is very confused and continues to remain at TTWB/NWB for LLE. PT Mcfp Goals Mcfp Goals PT Wheel Braider Goals Time Frame: Nov 03, 2016 Transfers (B,C,W/C) (FIM): 3 Gait (FIM): 1 Distance: 10' Gait Level of Assist: 3 Gait Assistive Device: FWW PT Plan Problem List Problem List: Activity Tolerance, Functional Strength, Safety, Balance, Gait, Transfer, Bed Mobility, ROM Treatment/Plan Treatment Plan: Continue Plan of Care Treatment Plan: Bed Mobility, Education, Functional Activity Minerva, Functional Strength, Gait, Safety, Therapeutic Exercise, Transfers Treatment Duration: Nov 03, 2016 Frequency: Twice Daily (once a day on the weekends) Estimated Hrs Per Day: .25 hour per day (15-30 min) Patient and/or Family Agrees t: Yes Safety Risks/Education Patient Education: Instructions to Caregiver, Disease Process, Safety Issues Teaching Recipient: Patient, Significant Other Teaching Methods: Discussion Response to Teaching: Verbalize Understanding (From Sp only) Time/GCodes Time In: 1430 Time Out: 1450 Total Billed Treatment Time: 20 Total Billed Treatment visit, FA (20m) KRISS KOLB ISOBUTYLENE OPERATOR CHIEF Oct 30, 2016 16:07
[2016-10-30 16:14] VITALS: BP 102/64
[2016-10-30 20:05] VITALS: BP 121/66
[2016-10-30] MEDS ORDERED: DIVALPROEX 250 MG DELAYED RELEASE (DEPAKOTE) TAB PO SCH (21:00)
[2016-10-31] VITALS: BP 129/62
[2016-10-31] MEDS: ALPRAZolam 0.25 MG (XANAX) TAB PO PRN (03:33)
[2016-10-31] MEDS: VITAMIN D3 1,000 UNITS (CHOLECALCIFEROL) TABLET PO SCH (06:11)
[2016-10-31] MEDS: MULTIVIT W/MINERALS TAB (THERAGRAN M) PO SCH (06:11)
[2016-10-31] MEDS: CATHETER FLUSH 10 ML SYR IV SCH (06:12)
[2016-10-31] MEDS: inSUlin (REGULAR) HUMAN 1 UNIT/0.01 ML (CHARGE PER UNIT) SC SCH ×2 (06:17→11:11)
[2016-10-31] MEDS ORDERED: PANTOPRAZOLE 40 MG (PROTONIX) TAB PO SCH (07:00)
[2016-10-31 08:00] VITALS: BP 138/76
[2016-10-31] MEDS: HYDROCHLOROTHIAZIDE 12.5 MG (HCTZ) CAP PO SCH (08:47)
[2016-10-31] MEDS: DOCUSATE SODIUM 100 MG (COLACE) CAP PO SCH (08:47)
[2016-10-31] MEDS: PARoxetine 20 MG (PAXIL) TAB PO SCH (08:47)
[2016-10-31] MEDS: MEMANTINE 10 MG (NAMENDA) TABLET PO SCH (08:47)
[2016-10-31] MEDS: ENOXAPARIN 40 MG/0.4 ML (LOVENOX) SYR SC SCH (08:47)
[2016-10-31] MEDS: oxyCODONE/APAP 5/325MG (PERCOCET 5) TABLET PO PRN ×2 (08:48→14:39)
[2016-10-31] MEDS: IRBESARTAN 150 MG (AVAPRO) TAB PO SCH (08:48)
[2016-10-31] MEDS: buPROPion SR 150 MG (WELLBUTRIN SR) TAB PO SCH (08:48)
--- NOTE | 2016-10-31 11:24 | Physical Therapy Daily Note ---
PT Daily Note-Current Subjective Patient is in bed and family agrees to PT. Pain Numeric Pain Scale: 0-No Pain Location: No Pain Reported Mental Status Patient Orientation: Confused Transfers Functional [place] Measure 0=Not Assessed/NA 4=Minimal Assistance 1=Total Assistance 5=Supervision or Setup 2=Maximal Assistance 6=Modified [place] 3=Moderate Assistance 7=Complete IndependenceIRFPAI Quality Coding Scale 6 Independent with activity with or without an assistive device 5 Patient requires set up or clean up by helper. Patient completes activity by themselves 4 Supervision or touching assist (CGA). [place] provide cues , steadying assist 3 The helper provides less than half the effort to complete the activity 2 The helper provides more than half the effort to complete the activity 1 Dependent. The helper does all the effort to complete an activity 7 Patient refused to complete or attempt activity 9 The patient did not perform the activity before the current illness or injury 88 Not attempted due to Medical conditions or safety concerns Exercises Supine Ex: Ankle pumps, Quad Set, Heel Slides, Straight leg raise, Hip abd/add Supine Reps: 15 (AAROM bilateral LE x 2 sets) Assessment bilateral LE exercises performed to increase strength to improve mobility. Patient to transfer to [place] on this date for continued care. PT School Occupational Therapist Goals School Occupational Therapist Goals PT School Occupational Therapist Goals Time Frame: Nov 03, 2016 Transfers (B,C,W/C) (FIM): 3 Gait (FIM): 1 Distance: 10' Gait Level of Assist: 3 Gait Assistive Device: FWW PT Plan Treatment/Plan Treatment Plan: Continue Plan of Care Treatment Plan: Bed Mobility, Education, Functional Activity [place], Functional Strength, Gait, Safety, Therapeutic Exercise, Transfers Treatment Duration: Nov 03, 2016 Frequency: Twice Daily (once a day on the weekends) Estimated Hrs Per Day: .25 hour per day (15-30 min) Patient and/or Family Agrees t: Yes Time/GCodes Time In: 1030 Time Out: 1040 Total Billed Treatment Time: 10 Total Billed Treatment 1 visit EX 10 min ORLANDO SHAH PT Oct 31, 2016 11:24
[2016-10-31] MEDS ORDERED: OXYC-471 PO (13:03)
[2016-10-31] MEDS ORDERED: ALPR0.254 PO (13:03)
[2016-10-31] MEDS ORDERED: PANT40TA3 PO (13:03)
[2016-10-31] MEDS ORDERED: DIVA250T4 PO (13:03)
[2016-10-31] MEDS ORDERED: DOCU100C37 PO (13:03)
[2016-10-31] MEDS ORDERED: RIVA15TA PO (13:03)
--- NOTE | 2016-10-31 13:06 | Discharge Inst-Skilled Nursing ---
Discharge Inst-Skilled NF Patient Instructions Patient Problems: left femur fracture dementia Goal: Up ambulating with walker once able to weight bear Consult/Follow Up/Orders Follow Up Appt.: Fwup with Dr. Drummond in 2 weeks Fwup with in 4 weeks Skilled NF Admit to: [facility] Certification (SNF) I certify that SNF services are required to be given on an inpatient basis because of the above named patient's need for senior living care on a continuing basis for the conditions(s) for which he/she was receiving inpatient hospital services prior to his/her transfer to the SNF. Residential Facility Order: Medical Receptionist-Evaluate & Treat, Physical Therapy-Evaluate & Treat, Speech Language-Evaluate & Treat Discharge Diet: No Restrictions Daily Activity as Tolerated: No (up with assist only, toe touch only on left leg) New & Resume Previous Orders Suzy Henson Oct 31, 2016 13:04 SUZY HENSON DO Oct 31, 2016 13:06
--- OUTSIDE RECORDS SUMMARY | 2016-11-01 06:44 | XMS REPORT | Continuity of Care Document ---
Author Author [facility] Organization [facility] Address Unknown Phone Unavailable Allergies Active Description Code Type Severity Reaction Onset Reported/Identified Relationship to Patient Clinical Status Yes No Known Drug Allergies [id number] Drug Allergy Unknown N/ A 06/17/2008 Medications Problems Date Dx Coded Attending Type Code Diagnosis Diagnosed By 03/11/2015 SHORTY ALCALA MD Ot S92.351A DISP FX OF FIFTH METATARSAL BONE, RIGHT 03/11/2015 SHORTY ALCALA MD Ot W01.0XXA FALL SAME LEV FROM SLIP/TRIP W/O STRIKE 03/11/2015 SHORTY ALCALA MD Ot Y92.[address] IN SINGLE-FAMILY (PRIVATE) 03/11/2015 SHORTY ALCALA MD Ot Y99.8 OTHER EXTERNAL CAUSE STATUS 03/11/2015 SHORTY ALCALA MD Ot 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 03/11/2015 SHORTY ALCALA MD Ot Z79.899 OTHER SENIOR LIVING (CURRENT) DRUG THERAPY Procedures Results Test Result Range Complete urinalysis with reflex to culture - 10/26/16 00:25 Urine color determination YELLOW NRG Urine clarity determination CLEAR NRG Urine pH measurement by test strip 5 5- 9 Specific gravity of urine by test strip 1.020 1.016-1.022 Urine protein assay by test strip, semi-quantitative 2+ NEGATIVE Urine glucose detection by automated test strip NEGATIVE NEGATIVE Erythrocytes detection in urine sediment by light microscopy NEGATIVE NEGATIVE Urine ketones detection by automated test strip 1+ NEGATIVE Urine nitrite detection by test strip NEGATIVE NEGATIVE Urine total bilirubin detection by test strip NEGATIVE NEGATIVE Urine urobilinogen measurement by automated test strip (mass/volume) 4 mg/dL NORMAL Urine leukocyte esterase detection by dipstick 1+ NEGATIVE Automated urine sediment erythrocyte count by microscopy (number/high power field) NONE NRG Automated urine sediment leukocyte count by microscopy (number/high power field ) [HPF] NRG Bacteria detection in urine sediment by light microscopy TRACE NRG Squamous epithelial cells detection in urine sediment by light microscopy RARE NRG Crystals detection in urine sediment by light microscopy NONE NRG Casts detection in urine sediment by light microscopy PRESENT NRG Mucus detection in urine sediment by light microscopy MODERATE NRG Complete urinalysis with reflex to culture NO NRG Hyaline casts detection in urine sediment by light microscopy 25-50 NRG Complete blood count (CBC) with automated white blood cell (WBC) differential - 10/26/16 00:27 Blood leukocytes automated count (number/volume) 7.0 10*3/ uL 4.3-11.0 Blood erythrocytes automated count (number/volume) 4.01 10*6 /uL 4.35-5.85 Venous blood hemoglobin measurement (mass/volume) 13.2 g/dL 11.5-16.0 Blood hematocrit (volume fraction) 40 % 35-52 Automated erythrocyte mean corpuscular volume 101 [foz_us] 80-99 Automated erythrocyte mean corpuscular hemoglobin (mass per erythrocyte) 33 pg 25-34 Automated erythrocyte mean corpuscular hemoglobin concentration measurement ( mass/volume) 33 g/dL 32-36 Automated erythrocyte distribution width ratio 13.4 % 10.0-14.5 Automated blood platelet count (count/volume) 279 10*3/uL 130-400 Automated blood platelet mean volume measurement 9.3 [foz_us ] 7.4-10.4 Automated blood neutrophils/100 leukocytes 55 % 42-75 Automated blood lymphocytes/100 leukocytes 33 % 12-44 Blood monocytes/100 leukocytes 10 % 0-12 Automated blood eosinophils/100 leukocytes 3 % 0-10 Automated blood basophils/100 leukocytes 0 % 0-10 Blood neutrophils automated count (number/volume) 3.8 10*3 1.8-7.8 Blood lymphocytes automated count (number/volume) 2.3 10*3 1.0-4.0 Blood monocytes automated count (number/volume) 0.7 10*3 0.0-1.0 Automated eosinophil count 0.2 10*3/uL 0.0-0.3 Automated blood basophil count (count/volume) 0.0 10*3/uL 0.0-0.1 Comprehensive metabolic panel - 10/26/16 00:27 Serum or plasma sodium measurement (moles/volume) 140 mmol/ L 135-145 Serum or plasma potassium measurement (moles/volume) 4.4 mmol/L 3.6-5.0 Serum or plasma chloride measurement (moles/volume) 104 mmol /L 98-107 Carbon dioxide 25 mmol/L 21-32 Serum or plasma anion gap determination (moles/volume) 11 mmol/L 5-14 Serum or plasma urea nitrogen measurement (mass/volume) 26 mg/dL 7-18 Serum or plasma creatinine measurement (mass/volume) 1.07 mg /dL 0.60-1.30 Serum or plasma urea nitrogen/creatinine mass ratio 24 NRG Serum or plasma creatinine measurement with calculation of estimated glomerular filtration rate 49 NRG Serum or plasma glucose measurement (mass/volume) 128 mg/dL 70-105 Serum or plasma calcium measurement (mass/volume) 9.3 mg/dL 8.5-10.1 Serum or plasma total bilirubin measurement (mass/volume) 0.3 mg/dL 0.1-1.0 Serum or plasma alkaline phosphatase measurement (enzymatic activity/volume) 68 U/L 40-136 Serum or plasma aspartate aminotransferase measurement (enzymatic activity/ volume) 12 U/L 5-34 Serum or plasma alanine aminotransferase measurement (enzymatic activity/volume ) 11 U/L 0-55 Serum or plasma protein measurement (mass/volume) 6.3 g/dL 6.4-8.2 Serum or plasma albumin measurement (mass/volume) 3.7 g/dL 3.2-4.5 Methicillin resistant Staphylococcus aureus (MRSA) screening culture - 08:21 Methicillin resistant Staphylococcus aureus (MRSA) screening culture NEG [facility] PT panel in platelet poor plasma by coagulation assay - 10/26/16 11:30 Prothrombin time (PT) in platelet poor plasma by coagulation assay 12.4 s 12.2-14.7 INR in platelet poor plasma or blood by coagulation assay 1.0 0.8-1.4 Activated partial thromboplastin time (aPTT) in platelet poor plasma bycoagulation assay - 10/26/16 11:30 Activated partial thromboplastin time (aPTT) in platelet poor plasma bycoagulation assay 25 s 24-35 Whole blood hemoglobin and hematocrit panel - 10/27/16 07:00 Venous blood hemoglobin measurement (mass/volume) 9.4 g/dL 11.5-16.0 Blood hematocrit (volume fraction) 30 % 35-52 Whole blood basic metabolic panel - 10/27/16 07:00 Serum or plasma sodium measurement (moles/volume) 134 mmol/ L 135-145 Serum or plasma potassium measurement (moles/volume) 5.0 mmol/L 3.6-5.0 Serum or plasma chloride measurement (moles/volume) 104 mmol /L 98-107 Carbon dioxide 18 mmol/L 21-32 Serum or plasma anion gap determination (moles/volume) 12 mmol/L 5-14 Serum or plasma urea nitrogen measurement (mass/volume) 37 mg/dL 7-18 Serum or plasma creatinine measurement (mass/volume) 1.93 mg /dL 0.60-1.30 Serum or plasma urea nitrogen/creatinine mass ratio 19 NRG Serum or plasma creatinine measurement with calculation of estimated glomerular filtration rate 25 NRG Serum or plasma glucose measurement (mass/volume) 137 mg/dL 70-105 Serum or plasma calcium measurement (mass/volume) 8.0 mg/dL 8.5-10.1 Comprehensive metabolic panel - 10/28/16 04:20 Serum or plasma sodium measurement (moles/volume) 135 mmol/ L 135-145 Serum or plasma potassium measurement (moles/volume) 4.4 mmol/L 3.6-5.0 Serum or plasma chloride measurement (moles/volume) 107 mmol /L 98-107 Carbon dioxide 19 mmol/L 21-32 Serum or plasma anion gap determination (moles/volume) 9 mmol/L 5-14 Serum or plasma urea nitrogen measurement (mass/volume) 38 mg/dL 7-18 Serum or plasma creatinine measurement (mass/volume) 1.43 mg /dL 0.60-1.30 Serum or plasma urea nitrogen/creatinine mass ratio 27 NRG Serum or plasma creatinine measurement with calculation of estimated glomerular filtration rate 35 NRG Serum or plasma glucose measurement (mass/volume) 116 mg/dL 70-105 Serum or plasma calcium measurement (mass/volume) 7.7 mg/dL 8.5-10.1 Serum or plasma total bilirubin measurement (mass/volume) 0.4 mg/dL 0.1-1.0 Serum or plasma alkaline phosphatase measurement (enzymatic activity/volume) 45 U/L 40-136 Serum or plasma aspartate aminotransferase measurement (enzymatic activity/ volume) 23 U/L 5-34 Serum or plasma alanine aminotransferase measurement (enzymatic activity/volume ) 10 U/L 0-55 Serum or plasma protein measurement (mass/volume) 4.7 g/dL 6.4-8.2 Serum or plasma albumin measurement (mass/volume) 2.7 g/dL 3.2-4.5 Automated blood complete blood count (hemogram) panel - 10/28/16 04:20 Blood leukocytes automated count (number/volume) 7.9 10*3/ uL 4.3-11.0 Blood erythrocytes automated count (number/volume) 2.16 10*6 /uL 4.35-5.85 Venous blood hemoglobin measurement (mass/volume) 7.0 g/dL 11.5-16.0 Blood hematocrit (volume fraction) 22 % 35-52 Automated erythrocyte mean corpuscular volume 101 [foz_us] 80-99 Automated erythrocyte mean corpuscular hemoglobin (mass per erythrocyte) 32 pg 25-34 Automated erythrocyte mean corpuscular hemoglobin concentration measurement ( mass/volume) 32 g/dL 32-36 Automated erythrocyte distribution width ratio 12.9 % 10.0-14.5 Automated blood platelet count (count/volume) 186 10*3/uL 130-400 Automated blood platelet mean volume measurement 9.6 [foz_us ] 7.4-10.4 RED CELLS LEUKO REDUCED AS1 - 10/28/16 12:59 RED CELLS LEUKO REDUCED AS1 TRANSFUSED [address] [facility] Blood type T Indirect antibody screen panel - 10/28/16 12:59 ABO+Rh group AN [facility] Transfusion band number [id number] [facility] Blood group antibody screen NEGATIVE [facility] Capillary blood glucose measurement by glucometer (mass/volume) - 10/28/16 16: 27 Capillary blood glucose measurement by glucometer (mass/volume) 117 mg/dL 70-110 Capillary blood glucose measurement by glucometer (mass/volume) - 10/28/16 20: 39 Capillary blood glucose measurement by glucometer (mass/volume) 145 mg/dL 70-110 Capillary blood glucose measurement by glucometer (mass/volume) - 10/29/16 05: 16 Capillary blood glucose measurement by glucometer (mass/volume) 124 mg/dL 70-110 Automated blood complete blood count (hemogram) panel - 10/29/16 05:16 Blood leukocytes automated count (number/volume) 7.7 10*3/ uL 4.3-11.0 Blood erythrocytes automated count (number/volume) 2.93 10*6 /uL 4.35-5.85 Venous blood hemoglobin measurement (mass/volume) 9.0 g/dL 11.5-16.0 Blood hematocrit (volume fraction) 28 % 35-52 Automated erythrocyte mean corpuscular volume 96 [foz_us] 80-99 Automated erythrocyte mean corpuscular hemoglobin (mass per erythrocyte) 31 pg 25-34 Automated erythrocyte mean corpuscular hemoglobin concentration measurement ( mass/volume) 32 g/dL 32-36 Automated erythrocyte distribution width ratio 16.1 % 10.0-14.5 Automated blood platelet count (count/volume) 206 10*3/uL 130-400 Automated blood platelet mean volume measurement 9.2 [foz_us ] 7.4-10.4 Comprehensive metabolic panel - 10/29/16 05:16 Serum or plasma sodium measurement (moles/volume) 137 mmol/ L 135-145 Serum or plasma potassium measurement (moles/volume) 4.0 mmol/L 3.6-5.0 Serum or plasma chloride measurement (moles/volume) 110 mmol /L 98-107 Carbon dioxide 17 mmol/L 21-32 Serum or plasma anion gap determination (moles/volume) 10 mmol/L 5-14 Serum or plasma urea nitrogen measurement (mass/volume) 30 mg/dL 7-18 Serum or plasma creatinine measurement (mass/volume) 0.80 mg /dL 0.60-1.30 Serum or plasma urea nitrogen/creatinine mass ratio 38 NRG Serum or plasma creatinine measurement with calculation of estimated glomerular filtration rate > NRG Serum or plasma glucose measurement (mass/volume) 122 mg/dL 70-105 Serum or plasma calcium measurement (mass/volume) 8.4 mg/dL 8.5-10.1 Serum or plasma total bilirubin measurement (mass/volume) 0.7 mg/dL 0.1-1.0 Serum or plasma alkaline phosphatase measurement (enzymatic activity/volume) 53 U/L 40-136 Serum or plasma aspartate aminotransferase measurement (enzymatic activity/ volume) 21 U/L 5-34 Serum or plasma alanine aminotransferase measurement (enzymatic activity/volume ) 13 U/L 0-55 Serum or plasma protein measurement (mass/volume) 5.2 g/dL 6.4-8.2 Serum or plasma albumin measurement (mass/volume) 2.9 g/dL 3.2-4.5 Capillary blood glucose measurement by glucometer (mass/volume) - 10/29/16 08: 00 Capillary blood glucose measurement by glucometer (mass/volume) 102 mg/dL 70-110 Capillary blood glucose measurement by glucometer (mass/volume) - 10/29/16 16: 09 Capillary blood glucose measurement by glucometer (mass/volume) 117 mg/dL 70-110 Complete urinalysis with reflex to culture - 10/29/16 17:00 Urine color determination YELLOW NRG Urine clarity determination SLIGHTLY CLOUDY NRG Urine pH measurement by test strip 6 5- 9 Specific gravity of urine by test strip 1.015 1.016-1.022 Urine protein assay by test strip, semi-quantitative 1+ NEGATIVE Urine glucose detection by automated test strip NEGATIVE NEGATIVE Erythrocytes detection in urine sediment by light microscopy NEGATIVE NEGATIVE Urine ketones detection by automated test strip NEGATIVE NEGATIVE Urine nitrite detection by test strip NEGATIVE NEGATIVE Urine total bilirubin detection by test strip NEGATIVE NEGATIVE Urine urobilinogen measurement by automated test strip (mass/volume) NORMAL NORMAL Urine leukocyte esterase detection by dipstick 1+ NEGATIVE Automated urine sediment erythrocyte count by microscopy (number/high power field) NONE NRG Automated urine sediment leukocyte count by microscopy (number/high power field ) [HPF] NRG Bacteria detection in urine sediment by light microscopy TRACE NRG Squamous epithelial cells detection in urine sediment by light microscopy 2-5 NRG Crystals detection in urine sediment by light microscopy NONE NRG Casts detection in urine sediment by light microscopy NONE NRG Mucus detection in urine sediment by light microscopy SMALL NRG Complete urinalysis with reflex to culture NO NRG Capillary blood glucose measurement by glucometer (mass/volume) - 10/29/16 20: 19 Capillary blood glucose measurement by glucometer (mass/volume) 96 mg/dL 70-110 Automated blood complete blood count (hemogram) panel - 10/30/16 04:20 Blood leukocytes automated count (number/volume) 6.1 10*3/ uL 4.3-11.0 Blood erythrocytes automated count (number/volume) 3.01 10*6 /uL 4.35-5.85 Venous blood hemoglobin measurement (mass/volume) 9.4 g/dL 11.5-16.0 Blood hematocrit (volume fraction) 30 % 35-52 Automated erythrocyte mean corpuscular volume 99 [foz_us] 80-99 Automated erythrocyte mean corpuscular hemoglobin (mass per erythrocyte) 31 pg 25-34 Automated erythrocyte mean corpuscular hemoglobin concentration measurement ( mass/volume) 32 g/dL 32-36 Automated erythrocyte distribution width ratio 15.8 % 10.0-14.5 Automated blood platelet count (count/volume) 264 10*3/uL 130-400 Automated blood platelet mean volume measurement 9.4 [foz_us ] 7.4-10.4 Comprehensive metabolic panel - 10/30/16 04:20 Serum or plasma sodium measurement (moles/volume) 139 mmol/ L 135-145 Serum or plasma potassium measurement (moles/volume) 4.5 mmol/L 3.6-5.0 Serum or plasma chloride measurement (moles/volume) 109 mmol /L 98-107 Carbon dioxide 24 mmol/L 21-32 Serum or plasma anion gap determination (moles/volume) 6 mmol/L 5-14 Serum or plasma urea nitrogen measurement (mass/volume) 23 mg/dL 7-18 Serum or plasma creatinine measurement (mass/volume) 0.73 mg /dL 0.60-1.30 Serum or plasma urea nitrogen/creatinine mass ratio 32 NRG Serum or plasma creatinine measurement with calculation of estimated glomerular filtration rate > NRG Serum or plasma glucose measurement (mass/volume) 111 mg/dL 70-105 Serum or plasma calcium measurement (mass/volume) 8.8 mg/dL 8.5-10.1 Serum or plasma total bilirubin measurement (mass/volume) 0.7 mg/dL 0.1-1.0 Serum or plasma alkaline phosphatase measurement (enzymatic activity/volume) 55 U/L 40-136 Serum or plasma aspartate aminotransferase measurement (enzymatic activity/ volume) 18 U/L 5-34 Serum or plasma alanine aminotransferase measurement (enzymatic activity/volume ) 13 U/L 0-55 Serum or plasma protein measurement (mass/volume) 5.1 g/dL 6.4-8.2 Serum or plasma albumin measurement (mass/volume) 2.9 g/dL 3.2-4.5 Encounters ACCT No. Visit Date/Time Discharge Status Pt. Type Provider Facility Loc./Unit Complaint [id number] 03/11/2015 11:27:00 2014 12:22:00 DIS Emergency FREDRICK MARTIN, SHORTY [facility] ER FALL/R LEG AND FOOT PAIN [id number] 10/26/2016 01:30:00 ACT Inpatient KAILYN MARTIN, [place] [facility] 4TH LEFT DISTAL FEMUR FX
--- OUTSIDE RECORDS SUMMARY | 2016-11-01 07:01 | XMS REPORT | Continuity of Care Document ---
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 03/11/2015 SHORTY ALCALA MD Ot Z79.899 OTHER CORRECTION (CURRENT) DRUG THERAPY Procedures Results Test Result [...] resistant Staphylococcus aureus (MRSA) screening culture NEG [facility] PT panel in platelet poor plasma by [...] RED CELLS LEUKO REDUCED AS1 TRANSFUSED 1632 [facility] Blood type T Indirect antibody screen panel - 10/28/16 12:59 ABO+Rh group AN [facility] Transfusion band number [id number] [facility] Blood group antibody screen NEGATIVE [facility] Capillary blood glucose measurement by glucometer (mass/volume) [...] Status Pt. Type Provider Facility Loc./Unit Complaint [id number] 03/11/2015 11:27:00 2014 12:22:00 DIS Emergency FREDRICK MARTIN, SHORTY [facility] ER FALL/R LEG AND FOOT PAIN [id number] 10/26/2016 01:30:00 ACT Inpatient KAILYN MARTIN, [place] [facility] 4TH LEFT DISTAL FEMUR FX
== END 2016-10-31 14:40 | DRG 481 ==
LOC: EDUNIT# 00:18 → ER 00:20 → 4TH 01:30
PROVIDERS: ADMIT Orthopaedic Surgery; ATTEND Orthopaedic Surgery
PROC: 0QS904Z Reposition Left Femoral Shaft with Internal Fixation Device, Open Approach (ICD-10-PCS; 2016-10-26)
PROC: 0QSC04Z Reposition Left Lower Femur with Internal Fixation Device, Open Approach (ICD-10-PCS; principal; 2016-10-26 11:41)
DX: S72.452A Displaced supracondylar fracture without intracondylar extension of lower end of left femur, initial encounter for closed fracture (principal); M97.12XA Periprosthetic fracture around internal prosthetic left knee joint, initial encounter; D62 Acute posthemorrhagic anemia; I10 Essential (primary) hypertension; E11.9 Type 2 diabetes mellitus without complications; F03.90 Unspecified dementia, unspecified severity, without behavioral disturbance, psychotic disturbance, mood disturbance, and anxiety; G89.4 Chronic pain syndrome; F32.9 Major depressive disorder, single episode, unspecified; M19.91 Primary osteoarthritis, unspecified site; R29.6 Repeated falls; R32 Unspecified urinary incontinence; R26.81 Unsteadiness on feet; W01.0XXA Fall on same level from slipping, tripping and stumbling without subsequent striking against object, initial encounter; Y92.003 Bedroom of unspecified non-institutional (private) residence as the place of occurrence of the external cause; Z86.73 Personal history of transient ischemic attack (TIA), and cerebral infarction without residual deficits; Z79.82 Long term (current) use of aspirin
CPT/HCPCS: 36415; 51702; 70450; 71010; 72170; 73552; 73562; 80048; 80053; 81000; 82962; 85014; 85018; 85025; 85027; 85610; 85730; 86850; 86900; 86901; 86920; 87081; 96361; 96374

== ENCOUNTER → 2016-11-09 | Outpatient (CLI) | payer MEDICARE, OTHER ==
[~2016-11-09] MED LIST changes: +ALPR0.254 PO; +BUPR150T7 PO; +CELE-63 PO; +DIVA250T4 PO; +DOCU100C37 PO; +ECHI350C PO; +GLUC-116 PO; +IRBE1TAB41 PO; +LMFO1TAB PO; +MEMA10TA22 PO; +MULT-1029 PO; +OXYC-471 PO; +PANT40TA3 PO; +PARO40TA3 PO; +RIVA15TA PO
[2016-11-09 14:47] LABS: BILIRUBIN,URINE NEGATIVE (NEGATIVE); KETONES,URINE NEGATIVE (NEGATIVE); LEUKOCYTE ESTERASE ,URINE NEGATIVE (NEGATIVE); NITRITE,URINE NEGATIVE (NEGATIVE); PH,URINE 6 (5-9); PROTEIN,URINE NEGATIVE (NEGATIVE); UROBILINOGEN,URINE NORMAL (NORMAL)
[2016-11-09 14:56] LABS: WBC,URINE 0-2 /HPF
== END ==
PROVIDERS: ATTEND Family Medicine
DX: R30.0 Dysuria (principal); R35.0 Frequency of micturition
CPT/HCPCS: 81000